=== PATIENT | male | born 1940 | race Caucasian/White ===

== ENCOUNTER 2019-02-15 23:33 | Emergency (ER) | payer MEDICARE, BC ==
[2019-02-16] MEDS ORDERED: Aspirin 81 MG Tab.Chew PO ONE (00:04)
--- NOTE | 2019-02-16 00:11 | EDM.PDOC ---
<Jose Isaacs M - Last Filed: 02/16/19 02:04> ED HPI GENERAL MEDICAL PROBLEM - General Chief Complaint: Chest Pain Stated Complaint: CHEST PAIN [id number] Time Seen by Provider: 02/16/19 00:00 Source of Information: Reports: Patient History Limitations: Reports: No Limitations - History of Present Illness INITIAL COMMENTS - FREE TEXT/NARRATIVE: This 78 yo male patient reports to the ED with substernal chest pain and upper abdominal pain that radiates to his back. The patient reports he started to notice symptoms while watching the news tonight. The patient reports he has a history of heartburn. The patient reports he had pizza for supper last night. Onset Date: 02/15/19 Onset Time: 22:00 Duration: Constant Location: Reports: Chest Quality: Reports: Ache, Burning, Dull Severity: Moderate Improves with: Reports: None Worsens with: Reports: None Associated Symptoms: Reports: No Other Symptoms Epigastric Pain Score (Numeric/FACES): 7 - Related Data Allergies Allergy/AdvReac Type Severity Reaction Status Date / Time No Known Allergies Allergy Verified 10/14/18 08:30 Home Meds: Home Meds Aspirin [Halfprin] 81 mg PO DAILY 10/10/18 [History] Lisinopril 10 mg PO DAILY 10/10/18 [History] Pravastatin Sodium [Pravastatin (Pravachol)] 40 mg PO DAILY 10/10/18 [History] Tamsulosin HCl 0.4 mg PO BEDTIME 10/10/18 [History] metFORMIN HCl [Metformin HCl] 1,000 mg PO DAILY 10/10/18 [History] Cyanocobalamin (Vitamin B-12) [B-12] 1,000 mcg PO DAILY 10/14/18 [History] amLODIPine Besylate [Amlodipine Besylate] 5 mg PO DAILY 10/14/18 [History] Past Medical History HEENT History: Reports: Impaired Vision Other HEENT History: Wears glasses Cardiovascular History: Reports: Hypertension Respiratory History: Reports: Sleep Apnea Gastrointestinal History: Reports: Diverticulosis, GERD, Other (See Below) Other Gastrointestinal History: Hx of Inguinal and umbilical hernia Genitourinary History: Reports: None Musculoskeletal History: Reports: Arthritis, Back Pain, Chronic Neurological History: Reports: None Psychiatric History: Reports: None Endocrine/Metabolic History: Reports: Diabetes, Type II, Obesity/BMI 30+ Hematologic History: Reports: B12 Deficiency Immunologic History: Reports: None Oncologic (Cancer) History: Reports: None Dermatologic History: Reports: None - Infectious Disease History Infectious Disease History: Reports: Chicken Pox, Mumps - Past Surgical History Head Surgeries/Procedures: Reports: None HEENT Surgical History: Reports: Adenoidectomy, Oral Surgery, Tonsillectomy Cardiovascular Surgical History: Reports: Other (See Below) Other Cardiovascular Surgeries/Procedures: hx of angiogram 2002 GI Surgical History: Reports: Colonoscopy, Hernia, Inguinal, Hernia Repair/Other Male Surgical History: Reports: None Endocrine Surgical History: Reports: None Neurological Surgical History: Reports: None Musculoskeletal Surgical History: Reports: Shoulder Surgery, Other (See Below) Other Musculoskeletal Surgeries/Procedures:: THUMB SURGERY. Orthoscopic knee surgery of right knee. Back surgery Social & Family History - Family History Family Medical History: Noncontributory - Caffeine Use Caffeine Use: Reports: Coffee Caffeine Use Comment: 1 mug daily. 1 pop occassionally ED ROS GENERAL - Review of Systems Review Of Systems: ROS reveals no pertinent complaints other than HPI. ED EXAM, GENERAL - Physical Exam Exam: See Below Exam Limited By: No Limitations General Appearance: Alert, WD/WN, Mild Distress Eye Exam: Bilateral Eye: EOMI, Normal Inspection, PERRL Ears: Normal External Exam, Normal Canal, Hearing Grossly Normal, Normal TMs Nose: Normal Inspection, Normal Mucosa, No Blood Throat/Mouth: Normal Inspection, Normal Lips, Normal Teeth, Normal Gums, Normal Oropharynx, Normal Voice, No Airway Compromise Head: Atraumatic, Normocephalic Neck: Normal Inspection, Supple, Non-Tender, Full Range of Motion Respiratory/Chest: No Respiratory Distress, Lungs Clear, Normal Breath Sounds, No Accessory Muscle Use, Chest Non-Tender Cardiovascular: Normal Peripheral Pulses, Regular Rate, Rhythm, No Edema, No Gallop, No JVD, No Murmur, No Rub GI/Abdominal: Normal Bowel Sounds, Soft, No Organomegaly, No Distention, No Abnormal Bruit, No Mass, Tender (over epigastric area) (Male) Exam: Deferred Rectal (Males) Exam: Deferred Back Exam: Normal Inspection, Full Range of Motion, NT Extremities: Normal Inspection, Normal Range of Motion, Non-Tender, Normal Capillary Refill, No Pedal Edema Neurological: Alert, Oriented, CN II-XII Intact, Normal Cognition, Normal Gait, Normal Reflexes, No Motor/Sensory Deficits Psychiatric: Normal Affect, Normal Mood Skin Exam: Warm, Dry, Intact, Normal Color, No Rash Lymphatic: No Adenopathy Course - Vital Signs Last Recorded V/S: Last Vital Signs Temp 37.4 C 02/15/19 23:37 Pulse 85 02/15/19 23:37 Resp 20 02/15/19 23:37 BP 170/88 H 02/15/19 23:37 Pulse Ox 95 02/15/19 23:37 - Orders/Labs/Meds Orders: Active Orders 24 hr Category Date Time Status EKG Documentation Completion [RC] URGENT Care 02/16/19 01:26 Active EKG Documentation Completion [RC] URGENT Care 02/16/19 03:30 Active Labs: Laboratory Tests 02/15/19 02/15/19 02/16/19 Range/Units 23:52 23:52 03:28 WBC 12.7 H (5.0-10.0) 10^3/uL RBC 5.90 (4.6-6.2) 10^6/uL Hgb 16.3 (14.0-18.0) g/dL Hct 48.1 (40.0-54.0) % MCV 81.5 (80-100) fL MCH 27.6 (27.0-34.0) pg MCHC 33.9 (33.0-35.0) g/dL Plt Count 214 (150-450) 10^3/uL Neut % (Auto) 67.6 (42.2-75.2) % Lymph % (Auto) 19.9 L (20.5-50.1) % [place] % (Auto) 9.0 H (2-8) % Eos % (Auto) 2.3 (1.0-3.0) % Baso % (Auto) 1.2 H (0.0-1.0) % Sodium 139 (135-145) mmol/L Potassium 3.5 L (3.6-5.0) mmol/L Chloride 103 (101-111) mmol/L Carbon Dioxide 25.0 (21.0-31.0) mmol/L Anion Gap 14.5 BUN 18 (7-18) mg/dL Creatinine 0.8 (0.6-1.3) mg/dL Est Cr Clr Drug Dosing 73.44 mL/min Estimated GFR (MDRD) > 60 BUN/Creatinine Ratio 22.50 Glucose 246 H (74-105) mg/dL Calcium 8.7 (8.4-10.2) mg/dl Total Bilirubin 0.7 (0.2-1.0) mg/dL AST 21 (10-42) IU/L ALT 16 (10-60) IU/L Alkaline Phosphatase 60 (42-121) IU/L Troponin I < 0.02 < 0.02 (0.00-0.02) ng/ml Total Protein 6.5 L (6.7-8.2) g/dl Albumin 3.7 (3.2-5.5) g/dl Globulin 2.8 Albumin/Globulin Ratio 1.32 Meds: Medications Discontinued Medications Generic Name Dose Route Start Last Admin Trade Name Freq PRN Reason Stop Dose Admin Al Hydroxide/Mg Hydroxide 30 ml 02/16/19 00:44 02/16/19 00:48 Gi Cocktail PO 02/16/19 00:45 30 ml ONETIME ONE Administration Aspirin 324 mg 02/16/19 00:04 02/16/19 00:08 Aspirin PO 02/16/19 00:05 324 mg ONETIME ONE Administration Morphine Sulfate 2 mg 02/16/19 01:06 02/16/19 01:10 Morphine IVPUSH 02/16/19 01:07 2 mg ONETIME ONE Administration - Re-Assessments/Exams Free Text/Narrative Re-Assessment/Exam: 02/16/19 00:48 The patient was advised of the lab, EKG and x-ray results. The patient reports the pain is starting to increase again. A GI cocktail was ordered for the patient. Departure - Departure Disposition: Home, Self-Care 01 Clinical Impression: Epigastric abdominal pain, Gastroesophageal reflux disease Instructions: Gastroesophageal Reflux Disease, Adult Forms: ED Department Discharge <Nic Duarte - Last Filed: 02/16/19 04:11> Course - Re-Assessments/Exams Free Text/Narrative Re-Assessment/Exam: Repeat troponin and EKG were both normal. Patient was deemed suitable for discharge home 02/16/19 04:11 Departure - Departure Time of Disposition: 04:10 Condition: Good - Problem List & Annotations (1) Epigastric abdominal pain SNOMED Code(s): 95627504 Code(s): R10.13 - EPIGASTRIC PAIN Status: Acute Current Visit: Yes - Problem List Review Problem List Initiated/Reviewed/Updated: Yes
[2019-02-16 00:20] LABS: ANION GAP 14.5; CHLORIDE,CL 103 mmol/L (101-111); SODIUM,NA 139 mmol/L (135-145)
[2019-02-16] MEDS ORDERED: GI Cocktail Oral Solution 30 ML PO ONE (00:44)
[2019-02-16] MEDS ORDERED: Morphine 2 MG/ML Syringe IVPUSH ONE (01:06)
== END 2019-02-16 04:20 | disposition home or self-care (01) ==
LOC: DL.ED 23:33
DX: K21.9 Gastro-esophageal reflux disease without esophagitis (principal); I10 Essential (primary) hypertension; E11.9 Type 2 diabetes mellitus without complications; Z79.82 Long term (current) use of aspirin; Z79.84 Long term (current) use of oral hypoglycemic drugs
CPT/HCPCS: 36415; 71045; 80053; 84484; 85025; 93005; 96374; 99285; A9270; J2270

== ENCOUNTER 2019-03-28 09:26 | Inpatient (IN) | payer MEDICARE, BC ==
--- NOTE | 2019-03-28 16:22 | PCM.HP ---
H&P History of Present Illness - General Date of Service: 03/28/19 Admit Problem/Dx: Admission Diagnosis/Problem Admission Diagnosis/Problem Debility Source of Information: Patient, Family History Limitations: Reports: No Limitations - History of Present Illness Initial Comments - Free Text/Narative: 78 yo M with PMH of CAD, HTN, who recently had CABG at [facility] on 03/20 and admitted to our facility for PT/OT as a swing bed patient. During his hospitalization in [place], had diarrhea and c diff and was started on oral vanc. 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 No new complaints. Diarrhea is improving - Related Data Allergies/Adverse Reactions: Allergies Allergy/AdvReac Type Severity Reaction Status Date / Time No Known Allergies Allergy Verified 03/28/19 10:21 Home Medications: Home Meds Lisinopril 10 mg PO DAILY 10/10/18 [History] Pravastatin Sodium [Pravastatin (Pravachol)] 40 mg PO DAILY 10/10/18 [History] Tamsulosin HCl 0.4 mg PO BEDTIME 10/10/18 [History] Cyanocobalamin (Vitamin B-12) [B-12] 1,000 mcg PO DAILY 10/14/18 [History] Amiodarone [Cordarone] 200 mg PO BID 03/28/19 [History] Aspirin 325 mg PO DAILY 03/28/19 [History] Metoprolol Tartrate [Lopressor] 25 mg PO BID 03/28/19 [History] Vancomycin HCl [Vancocin HCl] 125 mg PO QID 03/28/19 [History] traMADol [Ultram] 50 mg PO Q6H PRN 03/28/19 [History] Past Medical History HEENT History: Reports: Impaired Vision Other HEENT History: Wears glasses Cardiovascular History: Reports: Hypertension, Other (See Below) Other Cardiovascular History: CABG x2-2019 Respiratory History: Reports: Sleep Apnea Gastrointestinal History: Reports: Diverticulosis, GERD, Other (See Below) Other Gastrointestinal History: Hx of Inguinal and umbilical hernia Genitourinary History: Reports: None Musculoskeletal History: Reports: Arthritis, Back Pain, Chronic Neurological History: Reports: None Psychiatric History: Reports: None Endocrine/Metabolic History: Reports: Diabetes, Type II, Obesity/BMI 30+ Hematologic History: Reports: B12 Deficiency Immunologic History: Reports: None Oncologic (Cancer) History: Reports: None Dermatologic History: Reports: None - Infectious Disease History Infectious Disease History: Reports: C-Difficile, Chicken Pox - Past Surgical History Head Surgeries/Procedures: Reports: None HEENT Surgical History: Reports: Adenoidectomy, Oral Surgery, Tonsillectomy Cardiovascular Surgical History: Reports: Other (See Below) Other Cardiovascular Surgeries/Procedures: hx of angiogram 2002 GI Surgical History: Reports: Colonoscopy, Hernia, Inguinal, Hernia Repair/Other Male Surgical History: Reports: None Endocrine Surgical History: Reports: None Neurological Surgical History: Reports: None Musculoskeletal Surgical History: Reports: Shoulder Surgery, Other (See Below) Other Musculoskeletal Surgeries/Procedures:: THUMB SURGERY. Orthoscopic knee surgery of right knee. Back surgery Social & Family History - Family History Family Medical History: Noncontributory - Tobacco Use Smoking Status *Q: Former Smoker Used Tobacco, but Quit: Yes Month/Year Tobacco Last Used: 4 - Caffeine Use Caffeine Use: Reports: Coffee Caffeine Use Comment: 1 mug daily. 1 pop occassionally - Recreational Drug Use Recreational Drug Use: No H&P Review of Systems - Review of Systems: Review Of Systems: ROS reveals no pertinent complaints other than HPI. Exam - Exam Exam: See Below - Vital Signs Vital Signs: Last Vital Signs Temp 36.8 C 03/28/19 13:33 Pulse 85 03/28/19 13:33 Resp 20 03/28/19 13:33 BP 134/59 L 03/28/19 13:33 Pulse Ox 98 03/28/19 13:33 Weight: 98.339 kg - Exam General: Alert, Oriented HEENT: Conjunctiva Clear Neck: Supple, Trachea Midline Lungs: Clear to Auscultation, Normal Respiratory Effort Cardiovascular: Regular Rate, Regular Rhythm GI/Abdominal Exam: Normal Bowel Sounds, Soft Problem List Initiated/Reviewed/Updated: Yes Orders Last 24hrs: Active Orders 24 hr Category Date Time Status Patient Status [ADT] Routine ADT 03/28/19 16:11 Active Ambulate [RC] ASDIRECTED Care 03/28/19 16:11 Active Up With Assistance [RC] ASDIRECTED Care 03/28/19 16:11 Active VTE/DVT Education [RC] PER UNIT ROUTINE Care 03/28/19 16:11 Active Vital Signs [RC] DAILY Care 03/28/19 16:11 Active Regular Diet [DIET] Diet 03/28/19 Dinner Active Aspirin Med 03/29/19 09:00 Ordered 325 mg PO DAILY Cyanocobalamin (Vitamin B12) [Vitamin B12] Med 03/29/19 09:00 Ordered 1,000 mcg PO DAILY Lisinopril [Prinivil] Med 03/29/19 09:00 Ordered 10 mg PO DAILY Metoprolol Tartrate [Lopressor] Med 03/28/19 21:00 Ordered 25 mg PO BID Pravastatin Sodium Med 03/29/19 09:00 Ordered 40 mg PO DAILY Tamsulosin [Flomax] Med 03/28/19 21:00 Ordered 0.4 mg PO BEDTIME Vancomycin HCl [Vancocin HCl] Med 03/28/19 17:00 Ordered 125 mg PO QID traMADol [Ultram] Med 03/28/19 16:13 Ordered 50 mg PO Q6H PRN Code Status [Resuscitation Status] Routine Resus Stat 03/28/19 16:12 Ordered Medication Orders Aspirin (Aspirin) 325 mg PO DAILY GINA Cyanocobalamin (Vitamin B12) 1,000 mcg PO DAILY GINA Lisinopril (Prinivil) 10 mg PO DAILY GINA Metoprolol Tartrate (Lopressor) 25 mg PO BID GINA Non-Formulary Medication (Pravastatin Sodium) 40 mg PO DAILY GINA Non-Formulary Medication (Vancomycin Hcl [Vancocin Hcl]) 125 mg PO QID GINA Tamsulosin HCl (Flomax) 0.4 mg PO BEDTIME GINA Tramadol HCl (Ultram) 50 mg PO Q6H PRN PRN Reason: Pain (moderate 4-6) Assessment/Plan Comment:: #CAD s/p CABG stable continue aspirin, metoprolol, statin can hold amiodarone started for darryl-procedural afib. No AC #PT/OT #HTN continue current BP meds #C Diff improving continue oral vancomycin #Full code
[2019-03-28] MEDS: Vancomycin 50 MG/ML Oral Solution Bottle Kit PO SCH ×2 (17:34→20:51)
[2019-03-28] MEDS: traMADol 50 MG Tab PO PRN (19:39)
[2019-03-28] MEDS: Metoprolol Tartrate 25 MG Tab PO SCH (20:50)
[2019-03-28] MEDS: Tamsulosin 0.4 MG Cap.ER PO SCH (20:51)
[2019-03-29] MEDS: Metoprolol Tartrate 25 MG Tab PO SCH ×2 (09:55→20:55)
[2019-03-29] MEDS: Pravastatin 20 MG Tab PO SCH (09:55)
[2019-03-29] MEDS: Cyanocobalamin (Vitamin B12) 1,000 MCG Tab PO SCH (09:57)
[2019-03-29] MEDS: Vancomycin 50 MG/ML Oral Solution Bottle Kit PO SCH ×4 (09:57→20:55)
[2019-03-29] MEDS: Aspirin 325 MG Tab.EC PO SCH (09:57)
[2019-03-29] MEDS: Lisinopril 10 MG Tab PO SCH (09:57)
[2019-03-29] MEDS: Insulin Lispro 100 Units/ML 3 ML Vial SUBCUT SCH ×2 (12:17→18:03)
[2019-03-29] MEDS: traMADol 50 MG Tab PO PRN (20:56)
[2019-03-29] MEDS: Tamsulosin 0.4 MG Cap.ER PO SCH (20:56)
[2019-03-30] MEDS: traMADol 50 MG Tab PO PRN ×2 (04:19→20:45)
[2019-03-30] MEDS: Insulin Lispro 100 Units/ML 3 ML Vial SUBCUT SCH ×3 (08:12→17:09)
[2019-03-30] MEDS: Pravastatin 20 MG Tab PO SCH (09:06)
[2019-03-30] MEDS: Aspirin 325 MG Tab.EC PO SCH (09:07)
[2019-03-30] MEDS: Metoprolol Tartrate 25 MG Tab PO SCH ×2 (09:07→20:46)
[2019-03-30] MEDS: Cyanocobalamin (Vitamin B12) 1,000 MCG Tab PO SCH (09:08)
[2019-03-30] MEDS: Lisinopril 10 MG Tab PO SCH (09:08)
[2019-03-30] MEDS: Vancomycin 50 MG/ML Oral Solution Bottle Kit PO SCH ×4 (09:09→20:47)
--- OUTSIDE RECORDS SUMMARY | 2019-03-30 10:01 | XMSREPORT | Summary of Care ---
:1940 Author Organization [facility] Address [facility] [place] [address] Care Team Providers Name Role Phone Provider, No Attributed RESOURCE Attributed Provider Unavailable Vicky Walter APRN-MIGUEL ANGEL Primary Care Provider Reason for Visit Auth/Cert Status Reason Specialty Diagnoses / Procedures Referred By Contact Referred To Contact Diagnoses Atherosclerotic heart disease of [place] coronary artery Procedures CORONARY ARTERY BYPASS USING ARTERIAL GRAFT(S) SNGL ARTERIAL GRAFT Encounter Details Date Type Department Care Team Description 03/20/2019 - Hospital Encounter [facility] Jalen, CAD (coronary artery 03/28/2019 CENTER 6CD SLAVA Roblero MD disease) [id number] [place] [address] S [phone] [place] [address] [phone] Allergies No Known Allergiesdocumented as of this encounter (statuses as of 03/28/2019) Medications Medication Sig Dispensed Refills Start Date End Date Status lisinopril Take 10 mg by 0 Active (PRINIVIL, ZESTRIL) mouth 1 time 10 mg tablet per day. cyanocobalamin Take 1,000 mcg 0 Active (VITAMIN B-12) 500 by mouth 1 mcg tablet time per day. pravastatin Take 40 mg by 0 02/27/2015 Active (PRAVACHOL) 40 mg mouth 1 time tablet per day metFORMIN Take 500 mg by 0 Active (GLUCOPHAGE) 500 MG mouth 1 time tablet per day tamsulosin (FLOMAX) Take 0.4 mg by 0 Active 0.4 mg capsule mouth every night at bedtime aspirin 325 mg Take 1 tablet 120 tablet 0 03/28/2019 Active tabletIndications: (325 mg) by S/P CABG (coronary mouth 1 time artery bypass per day graft), Coronary artery disease involving [place] coronary artery of t[place] heart with angina pectoris (HCC) amiodarone Take 1 tablet 42 tablet 0 03/28/2019 Active (CORDARONE, (200 mg) by 9 PACERONE) 200 mg mouth 2 times tabletIndications: a day for 14 S/P CABG (coronary days, THEN 1 artery bypass tablet (200 graft), Coronary mg) 1 time per artery disease day for 14 involving [place]ora days. coronary artery of [place] heart with angina pectoris (HCC) metoprolol tartrate Take 1 tablet 180 tablet 3 03/28/2019 Active (LOPRESSOR) 25 mg (25 mg) by tabletIndications: mouth 2 times S/P CABG (coronary a day artery bypass graft), Coronary artery disease involving [place] coronary artery of [place] heart with angina pectoris (HCC) vancomycin Take 1 capsule 36 capsule 0 03/28/2019 Active (VANCOCIN) 125 mg (125 mg) by 9 capsuleIndications: mouth 4 times S/P CABG (coronary a day for 9 artery bypass days graft), Coronary artery disease involving [place] coronary artery of [place] heart with angina pectoris (HCC) traMADol (ULTRAM) 50 Take 1 tablet 10 tablet 0 03/28/2019 Active mg (50 mg) by tabletIndications: mouth every 4 S/P CABG (coronary to 6 hours as artery bypass needed for graft), Coronary moderate pain artery disease or severe pain involving [place] coronary artery of [place] heart with angina pectoris (HCC) acetaminophen Take 1,000 mg 0 Discontinued (TYLENOL) 500 mg by mouth Every 9 tablet 4 hours as needed. amLODIPine (NORVASC) Take 10 mg by 0 Discontinued 10 mg tablet mouth 1 time 9 per day. aspirin 81 mg Take 81 mg by 0 Discontinued enteric coated mouth 1 time 9 tablet per day. 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 Never 03/15/2019 How many drinks containing alcohol do you have on a typical Not asked day when you are drinking? How often do you have six or more drinks on one occasion? Not asked Sex Assigned at Date Recorded Not on file Job Start Date Occupation Industry Not on file Not on file Not on file Travel History Travel Start Travel End No recent travel history available. documented as of this encounter Last Filed Vital Signs Vital Sign Reading Time Taken Blood Pressure 139/88 03/28/2019 8:30 AM CDT Pulse 72 03/28/2019 8:30 AM CDT Temperature 36.8 C (98.3 F) 03/28/2019 8:30 AM CDT Respiratory Rate 16 03/28/2019 8:30 AM CDT Oxygen Saturation 93% 03/28/2019 8:30 AM CDT Inhaled Oxygen Concentration - - Weight 96.1 kg (211 lb 13.8 oz) 03/28/2019 5:17 AM CDT Height 167.6 cm (5' 6") 03/21/2019 12:00 AM CDT Body Mass Index 34.2 03/28/2019 5:17 AM CDT documented in this encounter Functional Status Functional Status Response Date of Assessment Is the person deaf or does he/she have serious difficulty No 03/17/2019 hearing? Is this person blind or does he/she have difficulty No 03/17/2019 seeing even when wearing glasses? Do you have difficulty with walking, balance, climbing No 03/20/2019 stairs, or had a fall in the last 3 months? Does the patient have difficulty dressing or bathing? No 03/17/2019 Because of a physical, mental, or emotional condition; No 03/17/2019 does this person have difficulty doing errands alone such as visiting a doctor's office or shopping? Cognitive Status Response Date of Assessment Because of a physical, mental, or emotional condition; No 03/17/2019 does this person have serious difficulty concentrating, remembering, or making decisions? documented as of this encounter Discharge Summaries Tor DavidEDUAR Fontaine-Johnnie - 03/28/2019 7:55 AM CDT Hospital Discharge Summary Attending Physician: Geraldine Davila MD Attending Physician Specialty: Cardiovascular and Thoracic Surgery Admit Date: 03/20/2019 Discharge Date: 03/28/19 Primary Care Physician: Vicky Walter APRN-[employer]OLDER [employer] RU[employer]ER Discharge Diagnoses Active Problems: CAD (coronary artery disease) Resolved Problems: * No resolved hospital problems. * Hospital Course Patient is a 78yr male with multi-vessel coronary artery disease. The patient' s symptoms include chest heaviness, shortness of breath and dyspnea on exertion. He denies progressive fatigue, syncope, dizziness, orthopnea, PND, leg swelling and palpitations. Recent cardiac workup has included cardiaccatheterization. He underwent Coronary Artery Bypass Grafting x 2 - On Pump - CHON to Distal LAD and RSVG to RCA by Dr. Davila on 03/20/19. Postoperatively the following day of surgery mediastinal chest tubes, arterial line, and vasopressors were discontinued. He was in stable condition to be transferred out of the ICU. He was started on abeta raul, statin, amiodarone prophylaxis, and aspirin. On POD# 3 patient developed atrial fibrillation, he was started on an amiodarone drip. He converted to normal sinus rhythm on POD#4 where he remained. POD#1 espinal was pulled out and needed to be reinserted due to hematuria, urology was consulted to manage. Espinal was removed on POD# 5, patient able to void without difficulty after catheter removal and bowel function returned. He started having frequent loose stools on POD#6, tested positivefor C. Diff and was started on vancomycin. He was successfully weaned from supplemental oxygen and ambulate without assistance. Prior to discharge central line and pacing wires were removed. Last potassium 4.8, last creatinine 0.80 were on 03/27 and last hemoglobin 10.2 were on 03/25. Hemodynamically stable , NSR. Last CXR revealed bibasilar atelectasis, no effusion or pneumothorax on . Patient is stable and ready for discharge to swing bed. Please see discharge AVS for medication list. Patient to start cardiac rehab in 1-2 weeks. Patient is advised of sternal precautions, no driving,no heavy lifting. Follow up with Dr. Davila in 1-2 weeks, then again in 3-4 weeks with echo, CXR, EKG, and labs. All questions were answered and patient is agreeable to discharge plan. LabTests Pending at Discharge Follow-Up Scheduled Contact information for follow-up Cardiac rehab [facility] [phone] Next Steps: Follow up Instructions: Cardiac rehab will contact you to set up initial appointment [facility] Ivan [place], RESOURCE Specialty: Acute [facility] ([facility]) [facility] Ivan [place] [address] [place] [address] Next Steps: Follow up Preliminary Discharge Medications This list of medications is preliminary and tentative. Please see the After Visit Summary for the final and accurate medication list. Discharge Medication List START taking these medications START: amiodarone 200 mg tablet Commonly known as: CORDARONE, PACERONE Take 1 tablet (200 mg) by mouth 2 times a day for 14 days, THEN 1 tablet (200 mg ) 1 time per day for14 days. Start taking on: 03/28/2019 START: aspirin 325 mg tablet Dose: 325 mg Take 1 tablet (325 mg) by mouth 1 time per day Replaces: aspirin 81 mg enteric coated tablet START: metoprolol tartrate 25 mg tablet Commonly known as: LOPRESSOR Dose: 25 mg Take 1 tablet (25 mg) by mouth 2 times a day START: traMADol 50 mg tablet Commonly known as: ULTRAM Dose: 50 mg Take 1 tablet (50 mg) by mouth every 4 to 6 hours as needed for moderate pain or severe pain START: vancomycin 125 mg capsule Commonly known as: VANCOCIN Dose: 125 mg Take 1 capsule (125 mg) by mouth 4 times a day for 9 days CONTINUE taking these medications which have NOT CHANGED CONTINUE: cyanocobalamin 500 mcg tablet Commonly known as: Vitamin B-12 Dose: 1000 mcg Take 1,000 mcg by mouth 1 time per day. CONTINUE: lisinopril 10 mg tablet Commonly known as: PRINIVIL, ZESTRIL Dose: 10 mg Take 10 mg by mouth 1 time per day. CONTINUE: pravastatin 40 mg tablet Commonly known as: PRAVACHOL Dose: 40 mg Take 40 mg by mouth 1 time per day CONTINUE: tamsulosin 0.4 mg capsule Commonly known as: FLOMAX Dose: 0.4 mg Take 0.4 mg by mouth every night at bedtime You might also be taking other medications not listed above. If you have questions about any of your other medications, talk to the person who prescribed them or your Primary Care Provider. STOP taking these medications STOP: amLODIPine 10 mg tablet Commonly known as: NORVASC STOP: aspirin 81 mg enteric coated tablet Replaced by: aspirin 325 mg tablet Where to Get Your Medications Information about where to get these medications is not yet available Ask your nurse or doctor about these medications amiodarone 200 mg tablet aspirin 325 mg tablet metoprolol tartrate 25 mg tablet traMADol 50 mg tablet vancomycin 125 mg capsule Temp: 98.9 F (37.2 C) BP: 138/94 Weight: 96.1 kg (211 lb 13.8 oz) SpO2: 93 % Resp: 16 Pulse: 77 Current BMI (>50=increased risk): (!) 33.91 O2 Device: Room Air O2 Flow Rate (L/min): 0 l/min Physical Exam See todays progress note. Procedures Performed and Findings All procedures during admission Procedure(s): CORONARY ARTERY BYPASS GRAFTING X2, VELAZQUEZ TO LAD, SVBG FROM AORTA TO RCA, OPEN LEG VEIN HARVEST, ON PUMP Consultations Obtained ENDOCRINOLOGY CONSULT UROLOGY CONSULT Discharge Disposition ADULT Discharge Planning: Home (1, 2) Medical Decision Making A total of 60 minutes were spent on discharge coordination. documented in this encounter Discharge Instructions Gris Elder PA-C - 03/28/2019Cardiothoracic Surgery Discharge Instructions 1. Follow up with Dr. Davila in 1-2 weeks as scheduled. 2. Do not lift anything heavier than a gallon of milk or do any strenuous upper body activity for 6weeks from the date of surgery. 3. Keep your incisions clean and dry. They can be washed with soap and water then patted dry. No dressings, ointments, creams, or powders are necessary unless directed by your doctor. 4. Place a band-aid or dry dressing over your chest tube sites only if draining. 5. Call Dr. Davila' office at [phone] if any of the following symptoms appear: Fever If your incisions appear reddened, draining purulent drainage, or if the wound edges come apart. If you develop shortness of breath or activity intolerance If your pain is severe and/or not relieved with pain medication 6. If any of the above symptoms appear after hours, or on weekends, call [facility] [place] Nurse at or [phone]. 7. You may shower, however do not take a tub bath, until okayed by your doctor. 8. Do not drive for 4 weeks from the date of surgery, and never while taking narcotic pain medicine. 9. Continue to use your incentive spirometer at home. 10. Please keep scheduled appointment with primary care provider as scheduled. documented in this encounter Progress Notes Odalis Aragon MD - 03/28/2019 9:13 AM CDT DIABETES CONSULT SERVICE PROGRESS NOTE 03/28/2019 Assessment and Plan 1. Type 2 Diabetes is currently stable. 2. Status post CABG 3. Dyslipidemia 4. Essential hypertension 5. Osteoarthritis Treatment Options and Recommendations 1. Diabetes type 2. The patient has good controlled diabetes. He is on low- dose Lantus 10 units once a day and NovoLog low-dose supplemental sliding scale. His blood sugars are well controlled right now. He has diagnosis of C. difficile infection diagnosed yesterday morning. He is on vancomycintreatment. He is going to swing bed in [place] for 7 days. - I suggest holding metformin well his insulin bed. He may resume metformin after he got back home. Metformin can cause diarrhea. Right now he has C. Diff infection. I would like to wait until he completes antibiotic first before resuming metformin. - May continue Lantus at swing bed if his blood sugar is still elevated. - Aim blood sugar between 120-180 mg/dL. 2. Dyslipidemia. Continue pravastatin 40 mg once a day. The diabetes consult service will answer pages from 7 AM to 7 PM. Please contact the primary team outside of these hours for urgent needs. Identifying Information / Chief Complaint Liang Yap is a 78yr old male admitted on 03/20/2019 5:00 AM. Chief Complaint: Type 2 Diabetes Interval History Interval History: He is stable. He has C. diff positive diagnosed on 03/25/2019. He was having diarrhea earlier. His diarrhea is better today. He has good appetite. He is eating well. He is treated with vancomycin 125 mg 4 times a day. He does not have any abdominal pain. His blood sugars well controlled on low dose insulin. He is going to swing bed in [place] for about 7 days before going home. At home he was on metformin 500 mg once a day. His A1c was 7.2%. He was having stomach problems when he was taking higher dose of metformin. Review of Systems General: No fevers or chillsCV: No chest pain Respiratory: No shortness of breath Physical Exam Vital Signs: BP: 139/88 (03/28/19829) | Pulse: 72 (03/28/19829) | Resp: 16 ( 03/28/19829) Mental Status: alert Lungs: no dyspnea, clear to auscultation bilaterally, normal effort. Eyes: sclera anicteric Skin: No rashes, lesions, or nodules on limited exam Data Review Last A1C Lab Results Component Value Date HGBA1C 7.2 (H) 03/15/2019 Last 48 Hours Glucose POC Glucose 03/28/19 0804 03/27/19 2353 03/27/19 1706 03/27/19 1115 03/27/19 0726 POC Glucose 112 115 119 169 130 Lab Glucose 03/27/19 0430 03/26/19 2052 03/26/19 1712 03/26/19 1132 POC Glucose 152 96 176 Lab Glucose 132 Odalis Aragon MD Geraldine Ledesma MD - 03/28/2019 8:28 AM CDTCVTS STAFF PROGRESS NOTE Pt seen at bedside. Agree with progress note and plan as written by Gris David PA-C Pt looks very good. Ready for transfer to swing bed today. Gris Albrecht PA- C - 03/28/2019 7:19 AM CDT CVTS Progress Note POD #8 Subjective: Problems over the previous 24 hours: none. Today, patient is complaining of nothing. Objective: Admission weight: Weight: 95.7 kg (211 lb) Current weight: Weight: 96.6 kg (212 lb 14.4 oz) Temp: 99 F (37.2 C) | BP: 161/97 | Pulse: 79 | Resp: 20 | Pain Ratin ( out of 10) | Weight: 96.1 kg (211 lb 13.8 oz) | O2 Device: Room Air O2 Flow Rate (L/min): 0 l/min | SpO2: 94 % Maximum Temperatures (last 24 hours) Temperature Maximum Max Temp 100.2 F (37.9 C) Tele: normal sinus rhythm Heart: RRR Lungs: CTA Bilaterally Extremities: no edema Incision(s): sternotomy clean, dry and intact and right groin clean, dry and intact Labs: CBC: WBC Date Value Ref Range Status 03/21/2019 19.4 (H) 4.0 - 11.0 K/uL Final 03/20/2019 22.7 (H) 4.0 - 11.0 K/uL Final Hemoglobin Date Value Ref Range Status 03/25/2019 10.2 (L) 13.5 - 17.5 g/dL Final 03/21/2019 11.2 (L) 13.5 - 17.5 g/dL Final Hematocrit Date Value Ref Range Status 03/21/2019 34.6 (L) 40.0 - 50.0 % Final 03/20/2019 41.9 40.0 - 50.0 % Final Platelet Count Date Value Ref Range Status 03/25/2019 294 140 - 400 K/uL Final 03/21/2019 145 140 - 400 K/uL Final Renal Function Panel: Sodium Date Value Ref Range Status 03/27/2019 141 135 - 145 meq/L Final 03/26/2019 142 135 - 145 meq/L Final Potassium Date Value Ref Range Status 03/27/2019 4.8 3.5 - 5.3 meq/L Final 03/26/2019 3.8 3.5 - 5.3 meq/L Final Chloride Date Value Ref Range Status 03/27/2019 105 99 - 110 meq/L Final 03/26/2019 105 99 - 110 meq/L Final CO2 Date Value Ref Range Status 03/27/2019 22 20 - 29 meq/L Final 03/26/2019 24 20 - 29 meq/L Final BUN Date Value Ref Range Status 03/27/2019 19 6 - 22 mg/dL Final 03/26/2019 21 6 - 22 mg/dL Final Creatinine Date Value Ref Range Status 03/27/2019 0.80 0.80 - 1.30 mg/dL Final 03/26/2019 0.84 0.80 - 1.30 mg/dL Final Glucose POC Date Value Ref Range Status 03/27/2019 115 (H) 70 - 100 mg/dL Final 03/27/2019 119 (H) 70 - 100 mg/dL Final Calcium Date Value Ref Range Status 03/27/2019 8.3 (L) 8.5 - 10.5 mg/dL Final 03/26/2019 8.6 8.5 - 10.5 mg/dL Final Phosphorus Date Value Ref Range Status 03/27/2019 3.9 2.5 - 4.5 mg/dL Final 03/26/2019 3.5 2.5 - 4.5 mg/dL Final Albumin Date Value Ref Range Status 03/27/2019 2.6 (L) 3.5 - 5.0 g/dL Final 03/26/2019 2.9 (L) 3.5 - 5.0 g/dL Final INR: INR Date Value Ref Range Status 03/20/2019 1.1 (L) 2.0 - 3.5 Final 03/06/2019 1.0 (L) 2.0 - 3.5 Final Assessment: S/PCABG Acute blood loss anemia after surgery Diabetes mellitus Post-op metabolic encephalopathy with confusion-improving Atrial fibrillation after surgical procedure C. Diff Plan: Pulmonary toilet Continue Vanco, aspirin, beta raul, ACEI/ARB, amiodarone and SQ heparin OOB to chair Ambulate Discharge to swing bed today by 10am Odalis Hobbs MD - 03/27/2019 10:41 AM CDT DIABETES CONSULT SERVICE PROGRESS NOTE 03/27/2019 Assessment and Plan 1. Type 2 Diabetes is currently stable. 2. Status post CABG 3. Dyslipidemia 4. Essential hypertension 5. Osteoarthritis Treatment Options and Recommendations 1. Diabetes type 2. The patient has good controlled diabetes. He is on low- dose Lantus 10 units once a day and NovoLog low-dose supplemental sliding scale. His blood sugars are well controlled right now. He has diagnosis of C. difficile infection diagnosed yesterday morning. He is on vancomycintreatment. - Continue Lantus 10 units once a day and NovoLog supplemental sliding scale. - Aim blood sugar between 120-180 mg/dL. I will follow with you. - Resume metformin after discharge. No insulin treatment at home. 2. Dyslipidemia. Continue pravastatin 40 mg once a day. The diabetes consult service will answer pages from 7 AM to 7 PM. Please contact the primary team outside of these hours for urgent needs. Identifying Information / Chief Complaint Liang Yap is a 78yr old male admitted on 03/20/2019 5:00 AM. Chief Complaint: Type 2 Diabetes Interval History Interval History: He is stable. He has C. diff positive diagnosed yesterday. He was having diarrhea earlier. His diarrhea is better today. He has good appetite. He is eating well. He is treated with vancomycin 125 mg 4 times a day. He does not have any abdominal pain. His blood sugars well controlled on low dose insulin. At home he was on metformin 500 mg once a day. His A1c was 7.2%. He was having stomach problems when he was taking higher dose of metformin. Review of Systems General: No fevers or chillsCV: No chest pain Respiratory: No shortness of breath Physical Exam Vital Signs: BP: 128/84 (03/27/19 0900) | Pulse: 84 (03/27/19 0900) | Resp: 16 ( 03/27/19 0900) Mental Status: alert Lungs: no dyspnea, clear to auscultation bilaterally, normal effort. Eyes: sclera anicteric Skin: No rashes, lesions, or nodules on limited exam Data Review Last A1C Lab Results Component Value Date HGBA1C 7.2 (H) 03/15/2019 Last 48 Hours Glucose POC Glucose (Last 10 results in the past 48 hours) 03/27/19 0726 03/27/19 0430 03/26/19 2052 03/26/19 1712 03/26/19 1132 POC Glucose 130 152 96 176 Lab Glucose 132 03/26/19 0843 03/26/19 0452 03/25/19 2048 03/25/19 1713 03/25/19 1125 POC Glucose 127 165 126 237 Lab Glucose 136 Odalis Aragon MD Geraldine Ledesma MD - 03/27/2019 7:41 AM CDTCVTS STAFF PROGRESS NOTE Pt seen at bedside. Agree with progress note and plan as written by Gris David PA-C Doing well other than CDiff. On oral vanco now. Patient stable for transfer to SNF if accepted. Continue all current meds. Gris Albrecht PA-C - 03/27/2019 7: 36 AM CDT CVTS Progress Note POD #7 Subjective: Problems over the previous 24 hours: C.Diff positive-started on oral vanco. Today, patient is complaining of nothing. Objective: Admission weight: Weight: 95.7 kg (211 lb) Current weight: Weight: 96.6 kg (212 lb 14.4 oz) Temp: 98.7 F (37.1 C) | BP: 126/79 | Pulse: 74 | Resp: 16 | Pain Ratin ( out of 10) | Weight:96.6 kg (212 lb 14.4 oz) | O2 Device: Room Air O2 Flow Rate (L/min): 0 l/min | SpO2: 92 % Maximum Temperatures (last 24 hours) Temperature Maximum Max Temp 99 F (37.2 C) Tele: normal sinus rhythm Heart: RRR Lungs: wheezes bilaterally Extremities: no edema Incision(s): sternotomy clean, dry and intact and right groin clean, dry and intact Labs: CBC: WBC Date Value Ref Range Status 03/21/2019 19.4 (H) 4.0 - 11.0 K/uL Final 03/20/2019 22.7 (H) 4.0 - 11.0 K/uL Final Hemoglobin Date Value Ref Range Status 03/25/2019 10.2 (L) 13.5 - 17.5 g/dL Final 03/21/2019 11.2 (L) 13.5 - 17.5 g/dL Final Hematocrit Date Value Ref Range Status 03/21/2019 34.6 (L) 40.0 - 50.0 % Final 03/20/2019 41.9 40.0 - 50.0 % Final Platelet Count Date Value Ref Range Status 03/25/2019 294 140 - 400 K/uL Final 03/21/2019 145 140 - 400 K/uL Final Renal Function Panel: Sodium Date Value Ref Range Status 03/27/2019 141 135 - 145 meq/L Final 03/26/2019 142 135 - 145 meq/L Final Potassium Date Value Ref Range Status 03/27/2019 4.8 3.5 - 5.3 meq/L Final 03/26/2019 3.8 3.5 - 5.3 meq/L Final Chloride Date Value Ref Range Status 03/27/2019 105 99 - 110 meq/L Final 03/26/2019 105 99 - 110 meq/L Final CO2 Date Value Ref Range Status 03/27/2019 22 20 - 29 meq/L Final 03/26/2019 24 20 - 29 meq/L Final BUN Date Value Ref Range Status 03/27/2019 19 6 - 22 mg/dL Final 03/26/2019 21 6 - 22 mg/dL Final Creatinine Date Value Ref Range Status 03/27/2019 0.80 0.80 - 1.30 mg/dL Final 03/26/2019 0.84 0.80 - 1.30 mg/dL Final Glucose Date Value Ref Range Status 03/27/2019 132 (H) 70 - 100 mg/dL Final Glucose POC Date Value Ref Range Status 03/27/2019 130 (H) 70 - 100 mg/dL Final Calcium Date Value Ref Range Status 03/27/2019 8.3 (L) 8.5 - 10.5 mg/dL Final 03/26/2019 8.6 8.5 - 10.5 mg/dL Final Phosphorus Date Value Ref Range Status 03/27/2019 3.9 2.5 - 4.5 mg/dL Final 03/26/2019 3.5 2.5 - 4.5 mg/dL Final Albumin Date Value Ref Range Status 03/27/2019 2.6 (L) 3.5 - 5.0 g/dL Final 03/26/2019 2.9 (L) 3.5 - 5.0 g/dL Final INR: INR Date Value Ref Range Status 03/20/2019 1.1 (L) 2.0 - 3.5 Final 03/06/2019 1.0 (L) 2.0 - 3.5 Final Chest X-Ray: left lobe atelectasis Assessment: S/PCABG Acute blood loss anemia after surgery Diabetes mellitus Post-op metabolic encephalopathy with confusion-improving Atrial fibrillation after surgical procedure C. Diff - Plan: Pulmonary toilet Continue Vanco, aspirin, beta raul, ACEI/ARB, amiodarone and SQ heparin OOB to chair Ambulate Cardiac rehab Continue PT/OT Discharge pending SNF placement Odalis Hobbs MD - 03/26/2019 6:27 PM CDT DIABETES CONSULT SERVICE PROGRESS NOTE 03/26/2019 Assessment and Plan 1. Type 2 Diabetes is currently stable. 2. Status post CABG 3. Dyslipidemia 4. Essential hypertension 5. Osteoarthritis Treatment Options and Recommendations 1. Diabetes type 2. The patient has good controlled diabetes. He is on low- dose Lantus 10 units once a day and NovoLog low-dose supplemental sliding scale. At home he was on metformin 500 mg once aday. His A1c was 7.2%. He was having stomach problems when he was taking higher dose of metformin. His blood sugar is well controlled right now. He has diagnosis of C. Difficile infection this morning. He is on vancomycin treatment. - Continue Lantus 10 units once a day and NovoLog supplemental sliding scale. - Resume metformin after discharge. No insulin treatment at home. 2. Dyslipidemia. Continue pravastatin 40 mg once a day. The diabetes consult service will answer pages from 7 AM to 7 PM. Please contact the primary team outside of these hours for urgent needs. Identifying Information / Chief Complaint Liang Yap is a 78yr old male admitted on 03/20/2019 5:00 AM. Chief Complaint: Type 2 Diabetes Interval History Interval History: He is stable. He has C. diff positive this morning. He was having diarrhea earlier. He is treated with vancomycin 125 mg 4 times a day. He reports that he has good appetite. He denies abdominal pain, nausea vomiting. He has been ambulating. His blood sugars well controlled on low dose insulin. Review of Systems General: No fevers or chillsCV: No chest pain Respiratory: No shortness of breath Physical Exam Vital Signs: BP: 116/66 (03/26/19 1523) | Pulse: 78 (03/26/19 1700) | Resp: 16 ( 03/26/19 1523) Mental Status: alert Lungs: no dyspnea, clear to auscultation bilaterally, normal effort. Eyes: sclera anicteric Skin: No rashes, lesions, or nodules on limited exam Data Review Last A1C Lab Results Component Value Date HGBA1C 7.2 (H) 03/15/2019 Last 48 Hours Glucose POC Glucose (Last 10 results in the past 48 hours) 03/26/19 1712 03/26/19 1132 03/26/19 0843 03/26/19 0452 03/25/19 2048 POC Glucose 96 176 127 165 Lab Glucose 136 03/25/19 1713 03/25/19 1125 03/25/19 0823 03/25/19 0440 03/24/194 POC Glucose 126 237 128 174 Lab Glucose 139 Odalis Aragon MD Gris decker PA-C - 03/26/2019 9:04 AM CDT CVTS Progress Note POD #6 Subjective: Problems over the previous 24 hours: frequent loose stools-will test for C. Diff. Today, patient is complaining of nothing. Objective: Admission weight: Weight: 95.7 kg (211 lb) Current weight: Weight: 96.4 kg (212 lb 9.6 oz) Urine Output: 1300 mL/24 hours Temp: 98.9 F (37.2 C) | BP: 113/83 | Pulse: 88 | Resp: 14 | Pain Ratin ( out of 10) | Weight:96.4 kg (212 lb 9.6 oz) | O2 Device: Room Air O2 Flow Rate (L/min): 0 l/min | SpO2: 95 % Maximum Temperatures (last 24 hours) Temperature Maximum Max Temp 99.1 F (37.3 C) Tele: normal sinus rhythm Heart: RRR Lungs: CTA bilaterally Extremities: no edema Incision(s): sternotomy clean, dry and intact and right leg clean, dry and intact Labs: CBC: WBC Date Value Ref Range Status 03/21/2019 19.4 (H) 4.0 - 11.0 K/uL Final 03/20/2019 22.7 (H) 4.0 - 11.0 K/uL Final Hemoglobin Date Value Ref Range Status 03/25/2019 10.2 (L) 13.5 - 17.5 g/dL Final 03/21/2019 11.2 (L) 13.5 - 17.5 g/dL Final Hematocrit Date Value Ref Range Status 03/21/2019 34.6 (L) 40.0 - 50.0 % Final 03/20/2019 41.9 40.0 - 50.0 % Final Platelet Count Date Value Ref Range Status 03/25/2019 294 140 - 400 K/uL Final 03/21/2019 145 140 - 400 K/uL Final Renal Function Panel: Sodium Date Value Ref Range Status 03/26/2019 142 135 - 145 meq/L Final 03/25/2019 139 135 - 145 meq/L Final Potassium Date Value Ref Range Status 03/26/2019 3.8 3.5 - 5.3 meq/L Final 03/25/2019 3.7 3.5 - 5.3 meq/L Final Chloride Date Value Ref Range Status 03/26/2019 105 99 - 110 meq/L Final 03/25/2019 104 99 - 110 meq/L Final CO2 Date Value Ref Range Status 03/26/2019 24 20 - 29 meq/L Final 03/25/2019 27 20 - 29 meq/L Final BUN Date Value Ref Range Status 03/26/2019 21 6 - 22 mg/dL Final 03/25/2019 23 (H) 6 - 22 mg/dL Final Creatinine Date Value Ref Range Status 03/26/2019 0.84 0.80 - 1.30 mg/dL Final 03/25/2019 0.84 0.80 - 1.30 mg/dL Final Glucose Date Value Ref Range Status 03/26/2019 136 (H) 70 - 100 mg/dL Final Glucose POC Date Value Ref Range Status 03/26/2019 127 (H) 70 - 100 mg/dL Final Calcium Date Value Ref Range Status 03/26/2019 8.6 8.5 - 10.5 mg/dL Final 03/25/2019 8.6 8.5 - 10.5 mg/dL Final Phosphorus Date Value Ref Range Status 03/26/2019 3.5 2.5 - 4.5 mg/dL Final 03/25/2019 3.1 2.5 - 4.5 mg/dL Final Albumin Date Value Ref Range Status 03/26/2019 2.9 (L) 3.5 - 5.0 g/dL Final 03/25/2019 2.8 (L) 3.5 - 5.0 g/dL Final INR: INR Date Value Ref Range Status 03/20/2019 1.1 (L) 2.0 - 3.5 Final 03/06/2019 1.0 (L) 2.0 - 3.5 Final Chest X-Ray: pending Assessment: S/PCABG Acute blood loss anemia after surgery Diabetes mellitus Post-op metabolic encephalopathy with confusion-improving 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 Type 2 Diabetes is currently stable. 2. Status post CABG 3. Dyslipidemia 4. Essential hypertension 5. Osteoarthritis Treatment Options and Recommendations 1. Diabetes type 2. The patient has good control diabetes. He is on low-dose Lantus 10 units oncea day and NovoLog low-dose supplemental sliding scale. At home he was on metformin 500 mg once a day. His A1c was 7.2%. He was having stomach problems when he was taking higher dose of metformin. His blood sugar is well controlled right now. I will keep him on current treatment. He can resume metformin after discharge. 2. Dyslipidemia. Continue pravastatin 40 mg once a day. The diabetes consult service will answer pages from 7 AM to 7 PM. Please contact the primary team outside of these hours for urgent needs. Identifying Information / Chief Complaint Liang Yap is a 78yr old male admitted on 03/20/2019 5:00 AM. Chief Complaint: Type 2 Diabetes Interval History Interval History: He is stable. He is feeling well today. His appetite is better. He has been ambulating. He took a shower this morning. Review of Systems General: No fevers or chillsCV: No chest pain Respiratory: No shortness of breath Physical Exam Vital Signs: BP: 118/70 (03/25/19 1522) | Pulse: 84 (03/25/19 1605) | Resp: 16 ( 03/25/19 1600) Mental Status: alert Lungs: no dyspnea, clear to auscultation bilaterally, normal effort. Eyes: sclera anicteric Skin: No rashes, lesions, or nodules on limited exam Data Review Last A1C Lab Results Component Value Date HGBA1C 7.2 (H) 03/15/2019 Last 48 Hours Glucose POC Glucose 03/25/19 1125 03/25/19 0823 03/25/19 0440 03/24/19 2124 03/24/19 1703 POC Glucose 237 128 174 121 Lab Glucose 139 03/24/19 1145 03/24/19 0706 03/24/19 0608 POC Glucose 148 156 Lab Glucose 150 Odalis Aragon MD Gris Albrecht PA-C - 03/25/2019 8:22 AM CDT CVTS Progress Note POD #5 Subjective: Problems over the previous 24 hours: confusion/delirium. Today, patient is complaining of nothing. Objective: Admission weight: Weight: 95.7 kg (211 lb) Current weight: Weight: 97 kg (213 lb 13.5 oz) Urine Output: 2775 mL/24 hours Temp: 98.7 F (37.1 C) | BP: 138/73 | Pulse: 86 | Resp: 16 | Pain Ratin ( out of 10) | Weight:97 kg (213 lb 13.5 oz) | O2 Device: Room Air O2 Flow Rate (L/min): 0 l/min | SpO2: 94 % Maximum Temperatures (last 24 hours) Temperature Maximum Max Temp 99.1 F (37.3 C) Tele: normal sinus rhythm Heart: RRR Lungs: Wheezes and crackles bilaterally Extremities: no edema Incision(s): sternotomy clean, dry and intact and right leg clean, dry and intact Labs: CBC: WBC Date Value Ref Range Status 03/21/2019 19.4 (H) 4.0 - 11.0 K/uL Final 03/20/2019 22.7 (H) 4.0 - 11.0 K/uL Final Hemoglobin Date Value Ref Range Status 03/25/2019 10.2 (L) 13.5 - 17.5 g/dL Final 03/21/2019 11.2 (L) 13.5 - 17.5 g/dL Final Hematocrit Date Value Ref Range Status 03/21/2019 34.6 (L) 40.0 - 50.0 % Final 03/20/2019 41.9 40.0 - 50.0 % Final Platelet Count Date Value Ref Range Status 03/25/2019 294 140 - 400 K/uL Final 03/21/2019 145 140 - 400 K/uL Final Renal Function Panel: Sodium Date Value Ref Range Status 03/25/2019 139 135 - 145 meq/L Final 03/24/2019 138 135 - 145 meq/L Final Potassium Date Value Ref Range Status 03/25/2019 3.7 3.5 - 5.3 meq/L Final 03/24/2019 3.8 3.5 - 5.3 meq/L Final Chloride Date Value Ref Range Status 03/25/2019 104 99 - 110 meq/L Final 03/24/2019 103 99 - 110 meq/L Final CO2 Date Value Ref Range Status 03/25/2019 27 20 - 29 meq/L Final 03/24/2019 25 20 - 29 meq/L Final BUN Date Value Ref Range Status 03/25/2019 23 (H) 6 - 22 mg/dL Final 03/24/2019 22 6 - 22 mg/dL Final Creatinine Date Value Ref Range Status 03/25/2019 0.84 0.80 - 1.30 mg/dL Final 03/24/2019 0.87 0.80 - 1.30 mg/dL Final Glucose Date Value Ref Range Status 03/25/2019 139 (H) 70 - 100 mg/dL Final Glucose POC Date Value Ref Range Status 03/24/2019 174 (H) 70 - 100 mg/dL Final Calcium Date Value Ref Range Status 03/25/2019 8.6 8.5 - 10.5 mg/dL Final 03/24/2019 8.9 8.5 - 10.5 mg/dL Final Phosphorus Date Value Ref Range Status 03/25/2019 3.1 2.5 - 4.5 mg/dL Final 03/24/2019 3.0 2.5 - 4.5 mg/dL Final Albumin Date Value Ref Range Status 03/25/2019 2.8 (L) 3.5 - 5.0 g/dL Final 03/24/2019 3.1 (L) 3.5 - 5.0 g/dL Final INR: INR Date Value Ref Range Status 03/20/2019 1.1 (L) 2.0 - 3.5 Final 03/06/2019 1.0 (L) 2.0 - 3.5 Final Chest X-Ray: stable-atelectasis bilateral lung bases Assessment: S/PCABG Acute blood loss anemia after surgery Diabetes mellitus Post-op metabolic encephalopathy with confusion-improving Atrial fibrillation after surgical procedure Plan: Pulmonary toilet Start Lisinopril 5mg Continue aspirin, statin, amiodarone prophylaxis, scheduled neb treatments and SQ heparin OOB to chair Ambulate Cardiac rehab Continue PT/OT Keep central line Remove espinal Remove pacing wiresElectronically signed by Gris David PA-C at 2018 9:36 AM Odalis Hobbs MD - 03/24/2019 8:03 PM CDT DIABETES CONSULT SERVICE PROGRESS NOTE 03/24/2019 Assessment and Plan 1. Type 2 Diabetes is currently stable. 2. Status post CABG 3. Dyslipidemia 4. Essential hypertension 5. Osteoarthritis Treatment Options and Recommendations 1. Diabetes type 2. The patient has good control diabetes. He is on low-dose Lantus 10 units oncea day and NovoLog low-dose supplemental sliding scale. At home he was on metformin 500 mg once a day. His A1c was 7.2%. He was having stomach problems when he was taking higher dose of metformin. His blood sugar is well controlled right now. I am going to keep him on current treatment. 2. Dyslipidemia. Continue pravastatin 40 mg once a day. The diabetes consult service will answer pages from 7 AM to 7 PM. Please contact the primary team outside of these hours for urgent needs. Identifying Information / Chief Complaint Liang Yap is a 78yr old male admitted on 03/20/2019 5:00 AM. Chief Complaint: Type 2 Diabetes Interval History Interval History: He is stable. Review of Systems General: No fevers or chillsCV: No chest pain Respiratory: No shortness of breath Physical Exam Vital Signs: BP: 142/77 (03/24/191945) | Pulse: 95 (03/24/191945) | Resp: 16 ( 03/24/191931) Mental Status: alert Lungs: no dyspnea, clear to auscultation bilaterally, normal effort. Eyes: sclera anicteric Skin: No rashes, lesions, or nodules on limited exam Data Review Last A1C Lab Results Component Value Date HGBA1C 7.2 (H) 03/15/2019 Last 48 Hours Glucose POC Glucose 03/24/19 1703 03/24/19 1145 03/24/19 0706 03/24/19 0608 03/23/19 1301 POC Glucose 121 148 156 154 Lab Glucose 150 03/23/19 0601 POC Glucose Lab Glucose 149 Odalis Aragon MD Geraldine Ledesma MD - 03/24/2019 8:33 AM CDTCVTS STAFF PROGRESS NOTE Pt seen at bedside. Agree with progress note and plan as written by Gris David PA-C Mental status much improved today. Respiratory status also improved. Short period of AFib last night. Back in sinus. BPs better. CXR improved. CT removed. Espinal per urology. Titrate up BB and convert to oral amiodarone. OK to transfer to floor today. Increase rehab efforts. Gris Alrbecht PA-C - 2018 7:16 AM CDT CVTS ICU Progress Note POD #4 Subjective: Problems over the previous 24 hours: very short episode of AFib with RVR yesterday evening Current drips: amiodarone Pulmonary status: on nasal cannula oxygen @ 4L Objective: Admission weight: Weight: 95.7 kg (211 lb) Current weight: Weight: 97.9 kg (215 lb 13.3 oz) Left Pleural Chest Tube Output: 50 mL/24 hours Urine Output: 2050 mL/24 hours 5 mm Hg | | | SVR: 1051 (dyne*SEC)/cm5 | CO: 4.9 L/min | CI: 2.4 l/min/m2 Temp: 97.9 F (36.6 C) | BP: 113/95 | Pulse: 94 | Resp: 22 | Pain Ratin ( out of 10) | Weight:97.9 kg (215 lb 13.3 oz) | O2 Device: CPAP (non-invasive)( home cpap) O2 Flow Rate (L/min): 7 l/min | SpO2: 96 % Maximum Temperatures (last 24 hours) Temperature Maximum Max Temp 98.3 F (36.8 C) Tele: normal sinus rhythm Heart: RRR Lungs: Wheezes and crackles bilaterally Extremities: no edema Neuro: alert and oriented, moving all extremities, no apparent deficits, sedated and following commands Incision(s): sternotomy clean, dry and intact and right lower leg clean, dry and intact Labs: CBC: WBC Date Value Ref Range Status 03/21/2019 19.4 (H) 4.0 - 11.0 K/uL Final 03/20/2019 22.7 (H) 4.0 - 11.0 K/uL Final Hemoglobin Date Value Ref Range Status 03/21/2019 11.2 (L) 13.5 - 17.5 g/dL Final 03/20/2019 13.8 13.5 - 17.5 g/dL Final Hematocrit Date Value Ref Range Status 03/21/2019 34.6 (L) 40.0 - 50.0 % Final 03/20/2019 41.9 40.0 - 50.0 % Final Platelet Count Date Value Ref Range Status 03/21/2019 145 140 - 400 K/uL Final 03/20/2019 160 140 - 400 K/uL Final Renal Function Panel: Sodium Date Value Ref Range Status 03/24/2019 138 135 - 145 meq/L Final 03/23/2019 138 135 - 145 meq/L Final Potassium Date Value Ref Range Status 03/24/2019 3.8 3.5 - 5.3 meq/L Final 03/23/2019 4.3 3.5 - 5.3 meq/L Final Chloride Date Value Ref Range Status 03/24/2019 103 99 - 110 meq/L Final 03/23/2019 107 99 - 110 meq/L Final CO2 Date Value Ref Range Status 03/24/2019 25 20 - 29 meq/L Final 03/23/2019 25 20 - 29 meq/L Final BUN Date Value Ref Range Status 03/24/2019 22 6 - 22 mg/dL Final 03/23/2019 22 6 - 22 mg/dL Final Creatinine Date Value Ref Range Status 03/24/2019 0.87 0.80 - 1.30 mg/dL Final 03/23/2019 1.01 0.80 - 1.30 mg/dL Final Glucose Date Value Ref Range Status 03/24/2019 150 (H) 70 - 100 mg/dL Final Glucose POC Date Value Ref Range Status 03/24/2019 156 (H) 70 - 100 mg/dL Final Calcium Date Value Ref Range Status 03/24/2019 8.9 8.5 - 10.5 mg/dL Final 03/23/2019 8.9 8.5 - 10.5 mg/dL Final Phosphorus Date Value Ref Range Status 03/24/2019 3.0 2.5 - 4.5 mg/dL Final 03/23/2019 3.0 2.5 - 4.5 mg/dL Final Albumin Date Value Ref Range Status 03/24/2019 3.1 (L) 3.5 - 5.0 g/dL Final 03/23/2019 3.1 (L) 3.5 - 5.0 g/dL Final INR: INR Date Value Ref Range Status 03/20/2019 1.1 (L) 2.0 - 3.5 Final 03/06/2019 1.0 (L) 2.0 - 3.5 Final ABG: pH Arterial Date Value Ref Range Status 03/22/2019 7.42 7.35 - 7.45 Final 03/21/2019 7.33 (L) 7.35 - 7.45 Final pCO2 Arterial Date Value Ref Range Status 03/22/2019 40 35 - 45 mmHg Final 03/21/2019 41 35 - 45 mmHg Final pO2 Arterial Date Value Ref Range Status 03/22/2019 59 (L) 80 - 100 mmHg Final 03/21/2019 70 (L) 80 - 100 mmHg Final HCO3 (Bicarb) Date Value Ref Range Status 03/22/2019 26 20 - 29 mmol/L Final 03/21/2019 22 20 - 29 mmol/L Final Base Excess Arterial Date Value Ref Range Status 03/22/2019 2 -2 - 2 meq/L Final 03/21/2019 -4 (L) -2 - 2 meq/L Final Chest X-Ray: right effusion with improving aeration Assessment: S/PCABG Acute blood loss anemia after surgery Diabetes mellitus Post-op metabolic encephalopathy with confusion-improving Atrial fibrillation after surgical procedure Plan: Pulmonary toilet Increase Lopressor to 25mg BID Will stop amiodarone drip later today Continue aspirin, statin, amiodarone, scheduled neb treatments and SQ heparin OOB to chair Ambulate Cardiac rehab Continue PT/OT Keep central line Leave espinal due to hematuria-will remove per urology Remove left pleural chest tube Transfer to floor Zan Welsh MD - 03/23/2019 7:21 AM CDT DIABETES CONSULT SERVICE PROGRESS NOTE 03/23/2019 Assessment and Plan 1. Stress Hyperglycemia, postoperative 2. Type 2 Diabetes 3. S/p CABG 4. Dyslipidemia Patient feeling well. BG at goal. Eating better. Recommendations: -Continue Lantus 10 units in the morning -Low dose novolog correction scale with meals -Blood sugar targets will be from 140 to 180 while inpatient. -Pravastatin 40 mg daily -He will likely resume his outpatient diabetes regimen upon dismissal. -We will continue to follow. Thank you for the consult, please page [phone] to contact diabetes consult service with any questions. Identifying Information / Chief Complaint Liang Yap is a 78yr old male admitted on 03/20/2019 5:00 AM. CC: hyperglycemia, glucose management Interval History Patient reports feeling better today. BG well controlled. No hypoglycemia. Review of Systems General: Denies any fever or chillsCV: Denies chest pain Respiratory: Denies shortness of breath GI: Denies nausea, vomiting or abdominal pain, appetite is low. Physical Exam Vital Signs: BP: 118/83 (03/23/19 0600) | Pulse: 76 (03/23/19 0600) | Resp: 16 ( 03/23/19 0600) Gen: Comfortable, no distress Mental Status: Awake, oriented Eyes: sclera anicteric Skin: No rashes, lesions, or nodules on limited exam Ext: no edema Data Review Last A1C Lab Results Component Value Date HGBA1C 7.2 (H) 03/15/2019 Last 48 Hours Glucose POC Glucose 03/23/19 0601 03/22/19 1949 03/22/19 1640 03/22/19 0809 03/22/19 0353 POC Glucose 133 160 135 Lab Glucose 149 169 03/21/19 2216 03/21/19 1734 03/21/19 1134 POC Glucose 161 165 163 Lab Glucose Zan Newman MD Geraldine Ledesma MD - 03/23/2019 6:50 AM CDT CVTS ICU Progress Note POD #3 Subjective: Problems over the previous 24 hours: increasing delirium/confusion over the afternoon/evening. Also went into AFib but back in sinus now. Respiratory status borderline. Current drips: none Pulmonary status: NC 5 L Objective: Admission weight: Weight: 95.7 kg (211 lb) Current weight: Weight: 98.5 kg (217 lb 2.5 oz) Left Pleural Chest Tube Output: 120 mL/24 hours Urine Output: 1300 mL/24 hours 5 mm Hg | | | SVR: 1051 (dyne*SEC)/cm5 | CO: 4.9 L/min | CI: 2.4 l/min/m2 Temp: 97.3 F (36.3 C) | BP: 118/83 | Pulse: 76 | Resp: 16 | Pain Ratin ( out of 10) | Weight:97.6 kg (215 lb 2.7 oz) | O2 Device: CPAP (non-invasive) O2 Flow Rate (L/min): 5 l/min | SpO2: 93 % Maximum Temperatures (last 24 hours) Temperature Maximum Max Temp 98.6 F (37 C) Tele: normal sinus rhythm Heart: RRR Lungs: wheezes and scattered crackles bilaterally Extremities: mild edema Neuro: Alert, confused Incision(s): sternotomy OR dressing in place and left leg OR dressing in place Labs: CBC: WBC Date Value Ref Range Status 03/21/2019 19.4 (H) 4.0 - 11.0 K/uL Final 03/20/2019 22.7 (H) 4.0 - 11.0 K/uL Final Hemoglobin Date Value Ref Range Status 03/21/2019 11.2 (L) 13.5 - 17.5 g/dL Final 03/20/2019 13.8 13.5 - 17.5 g/dL Final Hematocrit Date Value Ref Range Status 03/21/2019 34.6 (L) 40.0 - 50.0 % Final 03/20/2019 41.9 40.0 - 50.0 % Final Platelet Count Date Value Ref Range Status 03/21/2019 145 140 - 400 K/uL Final 03/20/2019 160 140 - 400 K/uL Final Renal Function Panel: Sodium Date Value Ref Range Status 03/23/2019 138 135 - 145 meq/L Final 03/22/2019 137 135 - 145 meq/L Final Potassium Date Value Ref Range Status 03/23/2019 4.3 3.5 - 5.3 meq/L Final 03/22/2019 5.0 3.5 - 5.3 meq/L Final Chloride Date Value Ref Range Status 03/23/2019 107 99 - 110 meq/L Final 03/22/2019 110 99 - 110 meq/L Final CO2 Date Value Ref Range Status 03/23/2019 25 20 - 29 meq/L Final 03/22/2019 22 20 - 29 meq/L Final BUN Date Value Ref Range Status 03/23/2019 22 6 - 22 mg/dL Final 03/22/2019 16 6 - 22 mg/dL Final Creatinine Date Value Ref Range Status 03/23/2019 1.01 0.80 - 1.30 mg/dL Final 03/22/2019 0.92 0.80 - 1.30 mg/dL Final Glucose Date Value Ref Range Status 03/23/2019 149 (H) 70 - 100 mg/dL Final Glucose POC Date Value Ref Range Status 03/22/2019 133 (H) 70 - 100 mg/dL Final Calcium Date Value Ref Range Status 03/23/2019 8.9 8.5 - 10.5 mg/dL Final 03/22/2019 8.8 8.5 - 10.5 mg/dL Final Phosphorus Date Value Ref Range Status 03/23/2019 3.0 2.5 - 4.5 mg/dL Final 03/22/2019 2.1 (L) 2.5 - 4.5 mg/dL Final Albumin Date Value Ref Range Status 03/23/2019 3.1 (L) 3.5 - 5.0 g/dL Final 03/22/2019 3.2 (L) 3.5 - 5.0 g/dL Final INR: INR Date Value Ref Range Status 03/20/2019 1.1 (L) 2.0 - 3.5 Final 03/06/2019 1.0 (L) 2.0 - 3.5 Final ABG: pH Arterial Date Value Ref Range Status 03/22/2019 7.42 7.35 - 7.45 Final 03/21/2019 7.33 (L) 7.35 - 7.45 Final pCO2 Arterial Date Value Ref Range Status 03/22/2019 40 35 - 45 mmHg Final 03/21/2019 41 35 - 45 mmHg Final pO2 Arterial Date Value Ref Range Status 03/22/2019 59 (L) 80 - 100 mmHg Final 03/21/2019 70 (L) 80 - 100 mmHg Final HCO3 (Bicarb) Date Value Ref Range Status 03/22/2019 26 20 - 29 mmol/L Final 03/21/2019 22 20 - 29 mmol/L Final Base Excess Arterial Date Value Ref Range Status 03/22/2019 2 -2 - 2 meq/L Final 03/21/2019 -4 (L) -2 - 2 meq/L Final Chest X-Ray: right atelectasis and small effusion Assessment: S/P CABG Acute blood loss anemia after surgery Diabetes mellitus Post-op metabolic encephalopathy with confusion Atrial fibrillation after surgical procedure Plan: Aggressive Pulmonary toilet-scheduled nebs and EzPap increased to q 4 Continue aspirin, BB, statin, scheduled neb treatments and SQ heparin OOB to chair Ambulate Cardiac rehab Keep central line Keep chest tube to water seal Keep espinal due to gross hematuria with bladder irrigation - will remove per urology Keep in ICU Encourage po intake 6: 56 AM Geraldine Ledesma MD - 03/22/2019 8:10 AM CDTCVTS STAFF PROGRESS NOTE Pt seen at bedside. Agree with progress note and plan as written by Gris David PA-C Espinal pulled on causing bleeding. Espinal removed then had retention. Espinal replaced. Otherwise no issues. Starting BB and lasix. Pulmonary toilet. Continue rehab efforts. Zan Welsh MD - 03/22/2019 7:07 AM CDT DIABETES CONSULT SERVICE PROGRESS NOTE 03/22/2019 Assessment and Plan 1. Stress Hyperglycemia, postoperative 2. Type 2 Diabetes 3. S/p CABG 4. Dyslipidemia He feels well. Transitioned off insulin drip. Not eating much yet. Recommendations: -Lantus 10 units in the morning -Low dose novolog correction scale with meals once off insulin drip. -Blood sugar targets will be from 140 to 180 while inpatient. -Pravastatin 40 mg daily -He will likely resume his outpatient diabetes regimen upon dismissal. -We will continue to follow. Thank you for the consult, please page [phone] to contact diabetes consult service with any questions. Identifying Information / Chief Complaint Liang Yap is a 78yr old male admitted on 03/20/2019 5:00 AM. CC: hyperglycemia, glucose management Interval History Patient reports feeling well today. Not eating much yet. BG at goal. Review of Systems General: Denies any fever or chillsCV: Denies chest pain Respiratory: Denies shortness of breath GI: Denies nausea, vomiting or abdominal pain, appetite is low. Physical Exam Vital Signs: BP: 118/81 (03/22/19 0300) | Pulse: 94 (03/22/19 0300) | Resp: 18 ( 03/22/19 0300) Gen: Comfortable, no distress Mental Status: Awake, oriented Eyes: sclera anicteric Skin: No rashes, lesions, or nodules on limited exam Ext: no edema Data Review Last A1C Lab Results Component Value Date HGBA1C 7.2 (H) 03/15/2019 Last 48 Hours Glucose POC Glucose (Last 10 results in the past 48 hours) 03/22/19 0353 03/21/19 2216 03/21/19 1734 03/21/19 1134 03/21/19 0659 POC Glucose 161 165 163 137 Lab Glucose 169 03/21/19 0553 03/21/19 0500 03/21/19 0353 03/21/19 0351 03/21/19 0300 POC Glucose 143 152 143 134 Lab Glucose 145 Zan Newman MD ATBGris decker PA-Johnnie - 03/22/2019 6:48 AM CDT CVTS ICU Progress Note POD #2 Subjective: Problems over the previous 24 hours: espinal was pulled out last evening-urology consulted for hematuria. Current drips: none Pulmonary status: Home CPAP with 5 L Objective: Admission weight: Weight: 95.7 kg (211 lb) Current weight: Weight: 98.5 kg (217 lb 2.5 oz) Mediastinal Chest Tube Output: 70 mL/24 hours Left Pleural Chest Tube Output: 60 mL/24 hours Urine Output: 525 mL/24 hours 5 mm Hg | | | SVR: 1051 (dyne*SEC)/cm5 | CO: 4.9 L/min | CI: 2.4 l/min/m2 Temp: 98.7 F (37.1 C) | BP: 118/81 | Pulse: 94 | Resp: 18 | Pain Ratin ( out of 10) | Weight:98.5 kg (217 lb 2.5 oz) | O2 Device: CPAP (non-invasive) O2 Flow Rate (L/min): 5 l/min | SpO2: 95 % Maximum Temperatures (last 24 hours) Temperature Maximum Max Temp 100.2 F (37.9 C) Tele: normal sinus rhythm Heart: RRR Lungs: wheezes bilaterally Extremities: no edema Neuro: alert and oriented, moving all extremities and no apparent deficits Incision(s): sternotomy OR dressing in place and left leg OR dressing in place Labs: CBC: WBC Date Value Ref Range Status 03/21/2019 19.4 (H) 4.0 - 11.0 K/uL Final 03/20/2019 22.7 (H) 4.0 - 11.0 K/uL Final Hemoglobin Date Value Ref Range Status 03/21/2019 11.2 (L) 13.5 - 17.5 g/dL Final 03/20/2019 13.8 13.5 - 17.5 g/dL Final Hematocrit Date Value Ref Range Status 03/21/2019 34.6 (L) 40.0 - 50.0 % Final 03/20/2019 41.9 40.0 - 50.0 % Final Platelet Count Date Value Ref Range Status 03/21/2019 145 140 - 400 K/uL Final 03/20/2019 160 140 - 400 K/uL Final Renal Function Panel: Sodium Date Value Ref Range Status 03/22/2019 137 135 - 145 meq/L Final 03/21/2019 139 135 - 145 meq/L Final Potassium Date Value Ref Range Status 03/22/2019 5.0 3.5 - 5.3 meq/L Final 03/21/2019 5.0 3.5 - 5.3 meq/L Final Chloride Date Value Ref Range Status 03/22/2019 110 99 - 110 meq/L Final 03/21/2019 112 (H) 99 - 110 meq/L Final CO2 Date Value Ref Range Status 03/22/2019 22 20 - 29 meq/L Final 03/21/2019 20 20 - 29 meq/L Final BUN Date Value Ref Range Status 03/22/2019 16 6 - 22 mg/dL Final 03/21/2019 13 6 - 22 mg/dL Final Creatinine Date Value Ref Range Status 03/22/2019 0.92 0.80 - 1.30 mg/dL Final 03/21/2019 0.90 0.80 - 1.30 mg/dL Final Glucose Date Value Ref Range Status 03/22/2019 169 (H) 70 - 100 mg/dL Final Glucose POC Date Value Ref Range Status 03/21/2019 161 (H) 70 - 100 mg/dL Final Calcium Date Value Ref Range Status 03/22/2019 8.8 8.5 - 10.5 mg/dL Final 03/21/2019 8.0 (L) 8.5 - 10.5 mg/dL Final Phosphorus Date Value Ref Range Status 03/22/2019 2.1 (L) 2.5 - 4.5 mg/dL Final 03/21/2019 4.4 2.5 - 4.5 mg/dL Final Albumin Date Value Ref Range Status 03/22/2019 3.2 (L) 3.5 - 5.0 g/dL Final 03/21/2019 3.5 3.5 - 5.0 g/dL Final INR: INR Date Value Ref Range Status 03/20/2019 1.1 (L) 2.0 - 3.5 Final 03/06/2019 1.0 (L) 2.0 - 3.5 Final ABG: pH Arterial Date Value Ref Range Status 03/21/2019 7.33 (L) 7.35 - 7.45 Final 03/21/2019 7.31 (L) 7.35 - 7.45 Final pCO2 Arterial Date Value Ref Range Status 03/21/2019 41 35 - 45 mmHg Final 03/21/2019 43 35 - 45 mmHg Final pO2 Arterial Date Value Ref Range Status 03/21/2019 70 (L) 80 - 100 mmHg Final 03/21/2019 69 (L) 80 - 100 mmHg Final HCO3 (Bicarb) Date Value Ref Range Status 03/21/2019 22 20 - 29 mmol/L Final 03/21/2019 22 20 - 29 mmol/L Final Base Excess Arterial Date Value Ref Range Status 03/21/2019 -4 (L) -2 - 2 meq/L Final 03/21/2019 -5 (L) -2 - 2 meq/L Final Chest X-Ray: bilateral lower lobe atelectasis Assessment: S/P CABG Acute blood loss anemia after surgery Diabetes mellitus Plan: Wean oxygen as tolerated Pulmonary toilet-scheduled nebs and aerobika ordered Replace phosphorus Start beta raul Continue aspirin, amiodarone prophylaxis, scheduled neb treatments and SQ heparin OOB to chair Ambulate Cardiac rehab Keep central line Remove mediastinal chest tubes Keep chest tube to water seal Transfer to floor Urology consulted-keep espinal for now Zan Welsh MD - 03/21/2019 7:11 AM CDT DIABETES CONSULT SERVICE PROGRESS NOTE 03/21/2019 Assessment and Plan 1. Stress Hyperglycemia, postoperative 2. Type 2 Diabetes 3. S/p CABG 4. Dyslipidemia He has been extubated. Feeling better. Not eating yet. On insulin drip. Recommendations: -Will transition off insulin drip today, will give Lantus 10 and d/c insulin drip 2 hours after -Low dose novolog correction scale with meals once off insulin drip. -Blood sugar targets will be from 140 to 180 while inpatient. -Pravastatin 40 mg daily -He will likely resume his outpatient diabetes regimen upon dismissal. -We will continue to follow. Thank you for the consult, please page [phone] to contact diabetes consult service with any questions. Identifying Information / Chief Complaint Liang Yap is a 78yr old male admitted on 03/20/2019 5:00 AM. CC: hyperglycemia, glucose management Interval History Patient reports feeling better today. No nausea, no vomiting and not eating. Has remained hemodynamically stable. Review of Systems General: Denies any fever or chillsCV: Denies chest pain Respiratory: Denies shortness of breath GI: Denies nausea, vomiting or abdominal pain, appetite is low. Physical Exam Vital Signs: BP: 102/69 (03/20/19 1300) | Pulse: 83 (03/21/19 0700) | Resp: 15 ( 03/21/19 0700) Gen: Comfortable, no distress Mental Status: Awake, oriented Eyes: sclera anicteric Skin: No rashes, lesions, or nodules on limited exam Ext: no edema Data Review Last A1C Lab Results Component Value Date HGBA1C 7.2 (H) 03/15/2019 Last 48 Hours Glucose POC Glucose (Last 10 results in the past 48 hours) 03/21/19 0659 03/21/19 0553 03/21/19 0500 03/21/19 0353 03/21/19 0351 POC Glucose 137 143 152 143 Lab Glucose 145 03/21/19 0300 03/21/19 0201 03/21/19 0109 03/20/19 2359 03/20/19 2303 POC Glucose 134 116 139 131 134 Lab Glucose Zan Newman MD Geraldine Ledesma MD - 03/21/2019 6:51 AM CDTCVTS STAFF PROGRESS NOTE Pt seen at bedside. Agree with progress note and plan as written by Gris David PA-C Uneventful night. Almost off levo. Labs OK. Home CPAP overnight. Plan to transfer once off levo. OOB. Advance diet. Gris Albrecht PA-C - 03/21/2019 6:46 AM CDT CVTS ICU Progress Note POD #1 Subjective: Problems over the previous 24 hours: none. Current drips: norepinephrine @ 0.05 mcg/kg/min and insulin Pulmonary status: On CPAP with 5L Objective: Admission weight: Weight: 95.7 kg (211 lb) Current weight: Weight: 95.8 kg (211 lb 3.2 oz) Mediastinal Chest Tube Output: 650 mL/24 hours Left Pleural Chest Tube Output: 140 mL/24 hours Urine Output: 1580 mL/24 hours 8 mm Hg | | | SVR: 962 (dyne*SEC)/cm5 | CO: 5.1 L/min | CI: 2.5 l/min/m2 Temp: 99.7 F (37.6 C) | BP: 102/69 | Pulse: 85 | Resp: 14 | Pain Ratin ( out of 10) | Weight:95.8 kg (211 lb 3.2 oz) | O2 Device: NC - cool humidity O2 Flow Rate (L/min): 5 l/min | SpO2: 92 % Maximum Temperatures (last 24 hours) Temperature Maximum Max Temp 100 F (37.8 C) Tele: normal sinus rhythm Heart: RRR Lungs: decreased breath sounds bilateral Bases Extremities: no edema Neuro: alert and oriented, moving all extremities and no apparent deficits Incision(s): sternotomy OR dressing in place and right Lower leg OR dressing in place Labs: CBC: WBC Date Value Ref Range Status 03/21/2019 19.4 (H) 4.0 - 11.0 K/uL Final 03/20/2019 22.7 (H) 4.0 - 11.0 K/uL Final Hemoglobin Date Value Ref Range Status 03/21/2019 11.2 (L) 13.5 - 17.5 g/dL Final 03/20/2019 13.8 13.5 - 17.5 g/dL Final Hematocrit Date Value Ref Range Status 03/21/2019 34.6 (L) 40.0 - 50.0 % Final 03/20/2019 41.9 40.0 - 50.0 % Final Platelet Count Date Value Ref Range Status 03/21/2019 145 140 - 400 K/uL Final 03/20/2019 160 140 - 400 K/uL Final Renal Function Panel: Sodium Date Value Ref Range Status 03/21/2019 139 135 - 145 meq/L Final 03/20/2019 141 135 - 145 meq/L Final Potassium Date Value Ref Range Status 03/21/2019 5.0 3.5 - 5.3 meq/L Final 03/20/2019 4.5 3.5 - 5.3 meq/L Final Chloride Date Value Ref Range Status 03/21/2019 112 (H) 99 - 110 meq/L Final 03/20/2019 113 (H) 99 - 110 meq/L Final CO2 Date Value Ref Range Status 03/21/2019 20 20 - 29 meq/L Final 03/20/2019 19 (L) 20 - 29 meq/L Final BUN Date Value Ref Range Status 03/21/2019 13 6 - 22 mg/dL Final 03/20/2019 13 6 - 22 mg/dL Final Creatinine Date Value Ref Range Status 03/21/2019 0.90 0.80 - 1.30 mg/dL Final 03/20/2019 0.82 0.80 - 1.30 mg/dL Final Glucose POC Date Value Ref Range Status 03/21/2019 143 (H) 70 - 100 mg/dL Final 03/21/2019 152 (H) 70 - 100 mg/dL Final Calcium Date Value Ref Range Status 03/21/2019 8.0 (L) 8.5 - 10.5 mg/dL Final 03/20/2019 8.6 8.5 - 10.5 mg/dL Final Phosphorus Date Value Ref Range Status 03/21/2019 4.4 2.5 - 4.5 mg/dL Final 03/20/2019 3.0 2.5 - 4.5 mg/dL Final Albumin Date Value Ref Range Status 03/21/2019 3.5 3.5 - 5.0 g/dL Final 03/20/2019 3.3 (L) 3.5 - 5.0 g/dL Final INR: INR Date Value Ref Range Status 03/20/2019 1.1 (L) 2.0 - 3.5 Final 03/06/2019 1.0 (L) 2.0 - 3.5 Final ABG: pH Arterial Date Value Ref Range Status 03/21/2019 7.33 (L) 7.35 - 7.45 Final 03/21/2019 7.31 (L) 7.35 - 7.45 Final pCO2 Arterial Date Value Ref Range Status 03/21/2019 41 35 - 45 mmHg Final 03/21/2019 43 35 - 45 mmHg Final pO2 Arterial Date Value Ref Range Status 03/21/2019 70 (L) 80 - 100 mmHg Final 03/21/2019 69 (L) 80 - 100 mmHg Final HCO3 (Bicarb) Date Value Ref Range Status 03/21/2019 22 20 - 29 mmol/L Final 03/21/2019 22 20 - 29 mmol/L Final Base Excess Arterial Date Value Ref Range Status 03/21/2019 -4 (L) -2 - 2 meq/L Final 03/21/2019 -5 (L) -2 - 2 meq/L Final Chest X-Ray: atelectasis bilateral bases Assessment: S/P CABG Acute blood loss anemia after surgery Diabetes mellitus Plan: Wean vasoactive drips as tolerated Wean oxygen as tolerated Pulmonary toilet Continue aspirin, amiodarone, scheduled neb treatments and SQ heparin OOB to chair Ambulate Cardiac rehab Keep central line Water seal chest tubes Potential transfer later today Tres Lopez [facility] - 03/20/2019 5:51 AM CDT 03/20/2019 05:51 Patient was seen by pharmacy for medication reconciliation. Home medications have been reconciled and updated on the home medications list to match the patient's home usage. Medications Deleted: Medications Added: Other information: Prior to Admission Medications Prescriptions Last Dose Informant Patient Reported? Taking? amLODIPine (NORVASC) 10 mg tablet 03/20/2019 at 0400 Self Yes Yes Sig: Take 10 mg by mouth 1 time per day. aspirin 81 mg enteric coated tablet 03/18/2019 at am Self Yes Yes Sig: Take 81 mg by mouth 1 time per day. cyanocobalamin (VITAMIN B-12) 500 mcg tablet 03/18/2019 at am Self Yes Yes Sig: Take 1,000 mcg by mouth 1 time per day. lisinopril (PRINIVIL, ZESTRIL) 10 mg tablet 03/18/2019 at Unknown time Self Yes Yes Sig: Take 10 mg by mouth 1 time per day. 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) XRAY CHEST PA AND LATERAL Routine S/P CABG (coronary artery Expected: 2018 bypass graft) (Approximate), Expires: 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) COMPLETE BLOOD COUNT WITH Routine S/P CABG (coronary artery Expected: 2018 DIFFERENTIAL bypass graft) (Approximate), Expires: 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) BASIC METABOLIC PANEL Routine S/P CABG (coronary artery Expected: 04/27/2019 bypass graft) (Approximate), Expires: 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) Health Maintenance Due Date Last Done Comments Amiodarone ALT 1942 Amiodarone AST 1942 Amiodarone TSH 1942 Tetanus Vaccine 1960 Zoster Vaccine (1 of 2 - 1992 RZV,Shingrix) [employer] Directive 2007 document Pneumococcal 65yr+ Low/Med Risk (1 2007 of 2 - PCV13) Influenza Vaccine (#1) 2018 08/29/2013, 09/08/2012 Lipid Screening 03/06/2020 03/06/2019 Amiodarone Chest X-ray 03/27/2020 03/27/2019, 03/26/2019, 03/25/2019, Additional history exists Diabetes Screening 03/27/2022 03/27/2019, 03/26/2019, 03/25/2019, Additional history exists documented as of this encounter Implants Implanted Type Area Records Management Analyst Device Shelf Model / Identifier Expiration Serial / Date Lot Kelli Arechiga Ccs 4-18 N [id number]/[id number] - [id number] N/A: [employer] [id number] / Implanted: Qty: 2 on 03/20/2019 by Geraldine Davila MD / documented as of this encounter Procedures Procedure Name Priority Date/Time Associated Comments Diagnosis GLUCOSE BY METER, Routine 03/28/2019 8:04 Results for this POCT AM CDT procedure are in the results section. GLUCOSE BY METER, Routine 03/27/2019 11:53 Results for this POCT PM CDT procedure are in the results section. GLUCOSE BY METER, Routine 03/27/2019 5:06 Results for this POCT PM CDT procedure are in the results section. GLUCOSE BY METER, Routine 03/27/2019 11:15 Results for this POCT AM CDT procedure are in the results section. GLUCOSE BY METER, Routine 03/27/2019 7:26 Results for this POCT AM CDT procedure are in the results section. XRAY CHEST PORTABLE Routine 03/27/2019 5:30 Results for this AM CDT procedure are in the results section. RENAL FUNCTION PANEL Routine 03/27/2019 4:30 Results for this AM CDT procedure are in the results section. GLUCOSE BY METER, Routine 03/26/2019 8:52 Results for this POCT PM CDT procedure are in the results section. GLUCOSE BY METER, Routine 03/26/2019 5:12 Results for this POCT PM CDT procedure are in the results section. GLUCOSE BY METER, Routine 03/26/2019 11:32 Results for this POCT AM CDT procedure are in the results section. GLUCOSE BY METER, Routine 03/26/2019 8:43 Results for this POCT AM CDT procedure are in the results section. CLOSTRIDIUM Routine 03/26/2019 8:17 Results for this DIFFICILE BY NAAT AM CDT procedure are in (PCR/LAMP) the results section. XRAY CHEST PORTABLE Routine 03/26/2019 5:38 Results for this AM CDT procedure are in the results section. RENAL FUNCTION PANEL Routine 03/26/2019 4:52 Results for this AM CDT procedure are in the results section. GLUCOSE BY METER, Routine 03/25/2019 8:48 Results for this POCT PM CDT procedure are in the results section. GLUCOSE BY METER, Routine 03/25/2019 5:13 Results for this POCT PM CDT procedure are in the results section. GLUCOSE BY METER, Routine 03/25/2019 11:25 Results for this POCT AM CDT procedure are in the results section. GLUCOSE BY METER, Routine 03/25/2019 8:23 Results for this POCT AM CDT procedure are in the results section. XRAY CHEST PORTABLE Routine 03/25/2019 5:15 Results for this AM CDT procedure are in the results section. PLATELET COUNT Routine 03/25/2019 4:40 Results for this AM CDT procedure are in the results section. HEMOGLOBIN Routine 03/25/2019 4:40 Results for this AM CDT procedure are in the results section. RENAL FUNCTION PANEL Routine 03/25/2019 4:40 Results for this AM CDT procedure are in the results section. GLUCOSE BY METER, Routine 03/24/2019 9:24 Results for this POCT PM CDT procedure are in the results section. GLUCOSE BY METER, Routine 03/24/2019 5:03 Results for this POCT PM CDT procedure are in the results section. GLUCOSE BY METER, Routine 03/24/2019 11:45 Results for this POCT AM CDT procedure are in the results section. GLUCOSE BY METER, Routine 03/24/2019 7:06 Results for this POCT AM CDT procedure are in the results section. RENAL FUNCTION PANEL Routine 03/24/2019 6:08 Results for this AM CDT procedure are in the results section. XRAY CHEST PORTABLE Routine 03/24/2019 5:20 Results for this AM CDT procedure are in the results section. CULTURE BACTERIAL, Routine 03/23/2019 4:51 Results for this URINE PM CDT procedure are in the results section. GLUCOSE BY METER, Routine 03/23/2019 1:01 Results for this POCT PM CDT procedure are in the results section. RENAL FUNCTION PANEL Routine 03/23/2019 6:01 Results for this AM CDT procedure are in the results section. XRAY CHEST PORTABLE Routine 03/23/2019 5:02 Results for this AM CDT procedure are in the results section. EKG Routine 03/23/2019 12:19 Results for this AM CDT procedure are in the results section. BLOOD GASES ARTERIAL SONNY 03/22/2019 9:18 Results for this PM CDT procedure are in the results section. GLUCOSE BY METER, Routine 03/22/2019 7:49 Results for this POCT PM CDT procedure are in the results section. GLUCOSE BY METER, Routine 03/22/2019 4:40 Results for this POCT PM CDT procedure are in the results section. GLUCOSE BY METER, Routine 03/22/2019 8:09 Results for this POCT AM CDT procedure are in the results section. XRAY CHEST PORTABLE Routine 03/22/2019 5:09 Results for this AM CDT procedure are in the results section. RENAL FUNCTION PANEL Routine 03/22/2019 3:53 Results for this AM CDT procedure are in the results section. GLUCOSE BY METER, Routine 03/21/2019 10:16 Results for this POCT PM CDT procedure are in the results section. GLUCOSE BY METER, Routine 03/21/2019 5:34 Results for this POCT PM CDT procedure are in the results section. GLUCOSE BY METER, Routine 03/21/2019 11:34 Results for this POCT AM CDT procedure are in the results section. GLUCOSE BY METER, Routine 03/21/2019 6:59 Results for this POCT AM CDT procedure are in the results section. EKG Routine 03/21/2019 6:53 Results for this AM CDT procedure are in the results section. GLUCOSE BY METER, Routine 03/21/2019 5:53 Results for this POCT AM CDT procedure are in the results section. BLOOD GASES ARTERIAL Routine 03/21/2019 5:38 Results for this AM CDT procedure are in the results section. XRAY CHEST PORTABLE Routine 03/21/2019 5:05 Results for this AM CDT procedure are in the results section. GLUCOSE BY METER, Routine 03/21/2019 5:00 Results for this POCT AM CDT procedure are in the results section. BLOOD GAS ARTERIAL Routine 03/21/2019 3:53 Results for this WITH IONIZED CALCIUM AM CDT procedure are in the results section. COMPLETE BLOOD COUNT Routine 03/21/2019 3:53 Results for this WITHOUT DIFFERENTIAL AM CDT procedure are in the results section. RENAL FUNCTION PANEL Routine 03/21/2019 3:53 Results for this AM CDT procedure are in the results section. GLUCOSE BY METER, Routine 03/21/2019 3:51 Results for this POCT AM CDT procedure are in the results section. GLUCOSE BY METER, Routine 03/21/2019 3:00 Results for this POCT AM CDT procedure are in the results section. GLUCOSE BY METER, Routine 03/21/2019 2:01 Results for this POCT AM CDT procedure are in the results section. GLUCOSE BY METER, Routine 03/21/2019 1:09 Results for this POCT AM CDT procedure are in the results section. GLUCOSE BY METER, Routine 03/20/2019 11:59 Results for this POCT PM CDT procedure are in the results section. GLUCOSE BY METER, Routine 03/20/2019 11:03 Results for this POCT PM CDT procedure are in the results section. GLUCOSE BY METER, Routine 03/20/2019 10:06 Results for this POCT PM CDT procedure are in the results section. GLUCOSE BY METER, Routine 03/20/2019 8:59 Results for this POCT PM CDT procedure are in the results section. GLUCOSE BY METER, Routine 03/20/2019 7:51 Results for this POCT PM CDT procedure are in the results section. GLUCOSE BY METER, Routine 03/20/2019 6:53 Results for this POCT PM CDT procedure are in the results section. POTASSIUM Routine 03/20/2019 6:53 Results for this PM CDT procedure are in the results section. BLOOD GAS ARTERIAL Timed Routine 03/20/2019 5:13 Results for this WITH IONIZED CALCIUM PM CDT procedure are in the results section. GLUCOSE BY METER, Routine 03/20/2019 5:13 Results for this POCT PM CDT procedure are in the results section. BLOOD GAS ARTERIAL Routine 03/20/2019 4:06 Results for this WITH IONIZED CALCIUM PM CDT procedure are in the results section. GLUCOSE BY METER, Routine 03/20/2019 4:06 Results for this POCT PM CDT procedure are in the results section. BLOOD GAS ARTERIAL Routine 03/20/2019 3:02 Results for this WITH IONIZED CALCIUM PM CDT procedure are in the results section. GLUCOSE BY METER, Routine 03/20/2019 3:02 Results for this POCT PM CDT procedure are in the results section. BLOOD GAS ARTERIAL Timed Routine 03/20/2019 1:54 Results for this WITH IONIZED CALCIUM PM CDT procedure are in the results section. GLUCOSE BY METER, Routine 03/20/2019 1:53 Results for this POCT PM CDT procedure are in the results section. GLUCOSE BY METER, Routine 03/20/2019 12:54 Results for this POCT PM CDT procedure are in the results section. BLOOD GAS ARTERIAL Timed Routine 03/20/2019 12:53 Results for this WITH IONIZED CALCIUM PM CDT procedure are in the results section. GLUCOSE BY METER, Routine 03/20/2019 11:40 Results for this POCT AM CDT procedure are in the results section. BLOOD GAS ARTERIAL Timed Routine 03/20/2019 11:38 Results for this WITH IONIZED CALCIUM AM CDT procedure are in the results section. PTT SONNY 03/20/2019 11:38 Results for this AM CDT procedure are in the results section. PROTIME/INR SONNY 03/20/2019 11:38 Results for this AM CDT procedure are in the results section. FIBRINOGEN SONNY 03/20/2019 11:38 Results for this AM CDT procedure are in the results section. COMPLETE BLOOD COUNT SONNY 03/20/2019 11:38 Results for this WITHOUT DIFFERENTIAL AM CDT procedure are in the results section. RENAL FUNCTION PANEL SONNY 03/20/2019 11:38 Results for this AM CDT procedure are in the results section. XRAY CHEST PORTABLE STAT 03/20/2019 11:33 Results for this AM CDT procedure are in the results section. OR PANEL 1 POCT Routine 03/20/2019 10:46 Results for this AM CDT procedure are in the results section. HEPARIN ASSAY Routine 03/20/2019 10:34 Results for this AM CDT procedure are in the results section. ACTIVATED CLOTTING Routine 03/20/2019 10:34 Results for this TIME POCT AM CDT procedure are in the results section. OR PANEL 1 POCT Routine 03/20/2019 10:29 Results for this AM CDT procedure are in the results section. HEPARIN ASSAY Routine 03/20/2019 10:13 Results for this AM CDT procedure are in the results section. ACTIVATED CLOTTING Routine 03/20/2019 10:13 Results for this TIME POCT AM CDT procedure are in the results section. OR PANEL 1 POCT Routine 03/20/2019 10:06 Results for this AM CDT procedure are in the results section. HEPARIN ASSAY Routine 03/20/2019 9:54 Results for this AM CDT procedure are in the results section. ACTIVATED CLOTTING Routine 03/20/2019 9:54 Results for this TIME POCT AM CDT procedure are in the results section. OR PANEL 1 POCT Routine 03/20/2019 9:47 Results for this AM CDT procedure are in the results section. HEPARIN ASSAY Routine 03/20/2019 9:25 Results for this AM CDT procedure are in the results section. ACTIVATED CLOTTING Routine 03/20/2019 9:25 Results for this TIME POCT AM CDT procedure are in the results section. OR PANEL 1 POCT Routine 03/20/2019 9:18 Results for this AM CDT procedure are in the results section. HEPARIN ASSAY Routine 03/20/2019 8:53 Results for this AM CDT procedure are in the results section. ACTIVATED CLOTTING Routine 03/20/2019 8:53 Results for this TIME POCT AM CDT procedure are in the results section. HEPARIN DOSE Routine 03/20/2019 7:19 Results for this RESPONSE AM CDT procedure are in the results section. ACTIVATED CLOTTING Routine 03/20/2019 7:19 Results for this TIME POCT AM CDT procedure are in the results section. OR PANEL 1 POCT Routine 03/20/2019 7:13 Results for this AM CDT procedure are in the results section. BYPASS CORONARY 03/20/2019 6:45 CVD ARTERY AM CDT (cardiovascular disease) Special Needs takes Lisinopril at 0700am GLUCOSE BY METER, POCT Routine 03/20/2019 5:59 AM CDT ABO AND RH STAT 03/20/2019 5:49 AM CDT documented in this encounter Results GLUCOSE BY METER, POCT (03/28/2019 8:04 AM CDT)Only the most recent of44 resultswithin the time period is included. Glucose POC 112 (H) 70 - 100 mg/dL [facility] POINT OF CARE TESTING Specimen Blood - Blood Performing Organization Address City/State/Zipcode Phone Number [facility] POINT OF [address] [place] [place] [address] CARE TESTING XRAY CHEST PORTABLE - (03/27/2019 5:30 AM CDT)Only the most recent of8 resultswithin the time period is included. Narrative Performed At [facility] Patient Name: LIANG YAP Date of :1940 Procedure: XRAY CHEST PORTABLE Date of Service: 03/27/2019 EXAM: XRAY CHEST PORTABLE INDICATION: Postop Cardiothoracic Surgery . TECHNIQUE: Single AP portable chest radiograph, one view. COMPARISON:03/26/2019. FINDINGS: EKG leads overlie the thorax. There is a right IJ central vascular catheter with its distal tip projecting over the expected location of the SVC. The cardiomediastinal silhouette is enlarged and stable. The trachea is midline. There is bibasilar atelectasis. There is blunting of the costophrenic angles.There is no pneumothorax. The visualized osseous structures and soft tissues are stable.There are median sternotomy wires. IMPRESSION: 1.Left greater than right small to trace bilateral pleural effusions with bibasilar atelectasis. 2.Improved aeration when compared to one day prior. 3.No pneumothorax. 4.Central pulmonary vascular congestion left hemithorax. 5.Elevation of the left hemidiaphragm. Finalized by: Suzi Redding MD on 03/27/2019 9:15 AM Patient/Procedure Information: [facility] MRN/JAYME: [id number] Order Number: [id number] Accession Number: [id number] Ordering Provider: GERALDINE DAVILA Authorizing Provider: GERALDINE DAVILA Procedure Note [facility], [facility] - 03/27/2019 9:17 AM CDT Patient Name: LIANG YAP Date of : 1940 Procedure: XRAY CHEST PORTABLE Date of Service: 03/27/2019 EXAM: XRAY CHEST PORTABLE INDICATION: Postop Cardiothoracic Surgery . TECHNIQUE: Single AP portable chest radiograph, one view. COMPARISON:03/26/2019. FINDINGS: EKG leads overlie the thorax. There is a right IJ central vascular catheter with its distal tip projecting over the expected location of the SVC. The cardiomediastinal silhouette is enlarged and stable. The trachea is midline. There is bibasilar atelectasis. There is blunting of the costophrenic angles. There is no pneumothorax. The visualized osseous structures and soft tissues are stable. There are median sternotomy wires. IMPRESSION: 1. Left greater than right small to trace bilateral pleural effusions with bibasilar atelectasis. 2. Improved aeration when compared to one day prior. 3. No pneumothorax. 4. Central pulmonary vascular congestion left hemithorax. 5. Elevation of the left hemidiaphragm. Finalized by: Suzi Redding MD on 03/27/2019 9:15 AM Patient/Procedure Information: [facility] MRN/JAYME: [id number] Order Number: [id number] Accession Number: [id number] Ordering Provider: GERALDINE DAVILA Authorizing Provider: GERALDINE DAVILA Performing Organization Address [facility] Phone Number [id number] RENAL FUNCTION PANEL (03/27/2019 4:30 AM CDT)Only the most recent of8 resultswithin the time period is included. Glucose 132 (H) 70 - 100 mg/dL [address] BUN 19 6 - 22 mg/dL [address] Creatinine 0.80 0.80 - 1.30 mg/dL [address] BUN/Creatinine Ratio 23.8 10.0 - 25.[address] Sodium 141 135 - 145 meq/L [address] Potassium 4.8 3.5 - 5.3 meq/L [address] Chloride 105 99 - 110 meq/L [address] CO2 22 20 - 29 meq/L [address] Anion Gap with K 19 6 - 20 meq/L [address] Calcium 8.3 (L) 8.5 - 10.5 mg/dL [address] Phosphorus 3.9 2.5 - 4.5 mg/dL [address] Albumin 2.6 (L) 3.5 - 5.0 g/dL [address] Corrected Calcium 9.4 8.5 - 10.5 mg/dL [address] Age [address] eGFR Non- >90 >=60 mL/min/1.73m2 [place] [address] [facility] eGFR >90 >=60 mL/min/1.73m2 [address] Specimen Blood - Blood Performing Organization Address [facility] Phone Number [place] [address] [facility] [address] [place] [facility] [place] [address] CLOSTRIDIUM DIFFICILE BY NAAT (PCR/LAMP) (03/26/2019 8:17 AM CDT) C difficile Toxin B Gene NAD DETECTED (A) Not Detected [facility] Specimen Feces - Feces Narrative Performed At This test was performed by polymerase chain reaction (PCR) [facility] on the GeneXpert instrument. Performing Organization Address [facility] Phone Number [facility] [address] [facility] [place] [address] HEMOGLOBIN (03/25/2019 4:40 AM CDT) Hemoglobin 10.2 (L) 13.5 - 17.5 g/dL [address] Specimen Blood - Blood Performing Organization Address [facility] Phone Number [address] [place] [address] PLATELET COUNT (03/25/2019 4:40 AM CDT) Platelet Count 294 140 - 400 K/uL [address] Specimen Blood - Blood Performing Organization Address [facility] Number [address] [place] [address] CULTURE BACTERIAL, URINE (03/23/2019 4:51 PM CDT) Culture Result No growth [facility] Specimen Urine - Cath-Indwelling Performing Organization [facility] Number [facility] [address] [place] [address] EKG (03/23/2019 12:19 AM CDT)Only the most recent of2 resultswithin the time period is included. EKG [facility] Atrial fibrillation with rapid ventricular response Low voltage QRS, consider pulmonary disease, pericardial effusion, or normal variant Nonspecific ST and T wave abnormality Abnormal ECG When compared with ECG of 21-MAR-2019 06:53, Atrial fibrillation has replaced Sinus rhythm Vent. rate has increased BY88 BPM T wave inversion now evident in Anterior leads Ventricular Rate: 170 BPM Atrial Rate: 187 BPM QRS Duration: 92 ms Q-T Interval: 240 ms QTc Calculation(Bazett): 403 ms Calculated R Larwill: 28 degrees Calculated T [place]: -18 degrees Narrative Performed At Performing Organization Address [facility] Phone Number TRACERaisedDigitalSTER SAVANNA B BLOOD GASES ARTERIAL (03/22/2019 9:18 PM CDT)Only the most recent of2 resultswithin the time period is included. pH Arterial 7.42 7.35 - 7.45 [facility] - RESPIRATORY THERAPY pCO2 Arterial 40 35 - 45 mmHg [facility] RESPIRATORY [facility] pO2 Arterial 59 (L) 80 - 100 mmHg [facility] RES[facility]IRATORY [facility] Base Excess Arterial 2 -2 - 2 meq/L [facility] RESPIRATORY THERAPY HCO3 (Bicarb) 26 20 - 29 mmol/L [facility] RES[facility]IRATORY [facility] O2 Sat % Arterial 91 (L) 95 - 98 % [facility] RES[facility]IRATORY [facility] Carbon Monoxide 0.8 0.0 - 3.0 % [facility] Methemoglobin 0.5 0.0 - 3.0 % [facility] RESPIRATORY [facility] p50 24.16 (L) 25.00 - 29.[address] [facility] Allens Test Positive [facility] RESPIRATORY [facility] Collection Site Arterial Lt radial [facility] O2 Source Nasal Cannula [facility] RESPIRATORY [facility] Specimen Blood - Arterial Narrative Performed At [address] [facility] Performing Organization Address City/State/Zipcode Phone Number [facility] - [address], [place] [address] RESPIRATORY THERAPY BLOOD GAS ARTERIAL WITH IONIZED CALCIUM (03/21/2019 3:53 AM CDT)Only the most recent of7 resultswithin the time period is included. pH Arterial 7.31 (L) 7.35 - 7.45 [facility] RESPIRATORY THERAPY pCO2 Arterial 43 35 - 45 mmHg [facility] RESPIRATORY [facility] pO2 Arterial 69 (L) 80 - 100 mmHg [facility] RESPIRATORY [facility] Base Excess Arterial -5 (L) -2 - 2 meq/L [facility] RESPIRATORY [facility] HCO3 (Bicarb) 22 20 - 29 mmol/L [facility] RESPIRATORY [facility] O2 Sat % Arterial 92 (L) 95 - 98 % [facility] RESPIRATORY [facility] Carbon Monoxide 0.9 0.0 - 3.0 % [facility] - RESPIRATORY [facility] Methemoglobin 0.5 0.0 - 3.0 % [facility] - RESPIRATORY THERAPY p50 25.87 25.00 - 29.00 [facility] mmHg [place] [facility] RESPIRATORY [facility] Allens Test Not Done-Drawn From [facility] Line [facility] RESPIRATORY [facility] Collection Site Arterial Arterial Line [facility] O2 Source Nasal [facility] CannulaComment: 5 [place] - RESPIRATORY lpm THERAPY Ionized Calcium 1.15 1.12 - 1.32 [facility] mmol/L [facility] Specimen Blood - Arterial Performing Organization Address [facility] Cent[facility]ode Phone Number [facility] - [address], [place] [address] RESPIRATORY THERAPY COMPLETE BLOOD COUNT WITHOUT DIFFERENTIAL (03/21/2019 3:53 AM CDT)Only the most recent of2 resultswithin the time period is included. WBC 19.4 (H) 4.0 - 11.0 K/uL [address] RBC 4.09 (L) 4.40 - 5.80 M/uL [address] Hemoglobin 11.2 (L) 13.5 - 17.5 g/dL [address] Hematocrit 34.6 (L) 40.0 - 50.0 % [address] MCV 84.6 80.0 - 98.[address] MCH 27.4 25.5 - 34.[address] MCHC 32.4 31.5 - 36.5 g/dL [address] RDW-CV 16.2 (H) 11.5 - 15.5 % [address] RDW-SD 50.3 (H) 35.5 - 50.[address] Platelet Count 145 140 - 400 K/uL [address] MPV 11.8 8.5 - 12.[address] Specimen Blood - Blood Performing Organization Address [facility] Phone Number [address], [place] [address] POTASSIUM (03/20/2019 6:53 PM CDT) Potassium 4.5 3.5 - 5.3 meq/L [address] Specimen Blood - Blood Performing Organization Address [facility] Phone Number [address] [place] [address] FIBRINOGEN (03/20/2019 11:38 AM CDT) Fibrinogen 278 200 - 450 mg/dL [address] Specimen Blood - Blood Performing Organization Address [facility] Phone Number [address] [place] [address] PTT (03/20/2019 11:38 AM CDT) APTT 37 (H) 24 - [address] Specimen Blood - Blood Performing Organization Address [facility] Phone Number [address] [place] [address] PROTIME/INR (03/20/2019 11:38 AM CDT) Protime 14.5 12.0 - 14.[address] INR 1.1 (L) 2.0 - 3.[address] Specimen Blood - Blood Narrative Performed At Normal INR reference range (patients not on oral [address] anticoagulants)0.9-1.1. INR Standard Intensity=(2.0 - 3.0) INR Higher Intensity=(2.5 - 3.5) Performing Organization Address [facility] Phone Number [address] [place] [address] OR PANEL 1 POCT (03/20/2019 10:46 AM CDT)Only the most recent of6 resultswithin the time period is included. pH Arterial POCT 7.34 (L) 7.35 - 7.45 [facility] POINT OF CARE TESTING pCO2 Arterial POCT 40 35 - 45 mmHg [facility] POINT OF CARE TESTING pO2 Arterial POCT 68 (L) 80 - 100 mmHg [facility] POINT OF CARE TESTING HCO3 (Bicarb) Arterial POCT 21 20 - 29 mmol/L [facility] POINT OF CARE TESTING Base Excess Arterial POCT -4 (L) -2 - 2 meq/L [facility] POINT OF CARE TESTING O2 Sat % Arterial POCT 92 (L) 95 - 98 % [facility] POINT OF CARE TESTING Ionized Calcium 1.30 1.12 - 1.32 mmol/L [facility] POINT OF CARE TESTING Sodium 144 135 - 145 meq/L [facility] POINT OF CARE TESTING Potassium 3.6 3.5 - 5.3 meq/L [facility] POINT OF CARE TESTING Glucose 170 (H) 70 - 100 mg/dL [facility] POINT OF CARE TESTING Hematocrit 38.0 (L) 40.0 - 50.0 % [facility] POINT OF CARE TESTING Hemoglobin 12.9 (L) 13.5 - 17.5 g/dL [facility] POINT OF CARE TESTING Specimen Source Arterial [facility] POINT OF CARE TESTING Specimen Blood - Blood Narrative Performed At Whole blood sample. Unable to evaluate for [facility] POINT OF CARE hemolysis. TESTING Performing Organization Address [facility] Phone Number [facility] POINT OF [address] [place] [address] CARE TESTING ACTIVATED CLOTTING TIME POCT (03/20/2019 10:34 AM CDT)Only the most recent of6 resultswithin the time period is included. Activated Clotting Time 112 100 - 150 Secs [facility] POINT OF CARE TESTING Specimen Blood - Blood Performing Organization Address [facility] Phone Number [facility] OF [address] [place] [phone] CARE TESTING HEPARIN ASSAY (03/20/2019 10:34 AM CDT)Only the most recent of5 resultswithin the time period is included. Heparin Assay 0 No Reference Range Established [facility] U/Kg POINT OF CARE TESTING Specimen Blood - Blood Performing Organization Address [facility]ode Phone Number [facility] POINT OF [address] [place] [address] CARE TESTING HEPARIN DOSE RESPONSE (03/20/2019 7:19 AM CDT) Heparin Dose Response 310 No Reference Range Established [facility] U/Kg [place] POINT OF CARE TESTING Heparin Sarpy 82 70 - 90 Sec/Unit/mL [facility] POINT OF CARE TESTING Specimen Blood - Blood Performing Organization Address [facility] Phone Number [facility] POINT OF [address] [facility] [place] [address] CARE TESTING ABO & RH G (03/20/2019 5:49 AM CDT) ABO Type O [address] BLOOD BANK Rh Type Positive [address] BLOOD BANK Specimen Blood - Blood Performing Organization Address [facility]/Zipcode Phone Number [address] BLOOD BANK [address] [facility] [place] [address] documented in this encounter Visit Diagnoses Diagnosis S/P CABG (coronary artery bypass graft) - Primary 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) CAD (coronary artery disease) Coronary atherosclerosis of unspecified type of vessel, tuscarora or graft documented in this encounter Administered Medications Medication Order MAR Action Action Date Dose Rate Site acetaminophen (TYLENOL) tablet Given 03/28/2019 8:27 AM CDT 1,000 mg 1,000 mg 1,000 mg, Oral, Three times a day, First dose on Wed03/21/19 at 0900, Until Discontinued, Total dose of acetaminophen from all acetaminophen containing products should not exceed 4 grams (4000 mg) per day., Given 03/27/2019 9:13 PM CDT 1,000 mg Given 03/27/2019 3:41 PM CDT 1,000 mg amiodarone (CORDARONE, PACERONE) tablet 200 Given 03/28/2019 8:27 AM CDT 200 mg mg 200 mg, Oral, Two times a day, First dose on Wed03/27/19 at 0900, Until Discontinued, Post - Op, Hold for HR < 65, Given 03/27/2019 9:13 PM CDT 200 mg Given 03/27/2019 9:25 AM CDT 200 mg aspirin tablet 325 mg Given 03/28/2019 8:25 AM CDT 325 mg 325 mg, Oral, Daily, First dose on Wed03/21/19 at 0900, Until Discontinued Given 03/27/2019 9:25 AM CDT 325 mg Given 03/26/2019 8:47 AM CDT 325 mg benzocaine-menthol (CEPACOL w/ BENZOCAINE) lozenge 1 lozenge 1 lozenge, Mouth/Throat, Every four hours prn, Starting Wed03/22/19 at 0652, Until Discontinued, sore throat, cough or dry throat carbohydrate 30 g 30 g, Oral, PRN per parameter, Starting Wed03/20/19 at 1119, Until Discontinued , other (Specify), for FIRST blood glucose less than 70 mg/dL, Post - Op, - Patient is alert and taking Orals - Check blood glucose 30 minutes after administration - 30 grams carbohydrate=8 oz of fruit juice, dextrose 50% IV solution 25 mL 25 mL, IV, PRN per parameter, Starting Wed03/20/19 at 1119, Until Discontinued , other (Specify), for FIRST blood glucose less than 70 mg/dL, 50 mL, Post - Op, - Patient not alert or if NPO - Check blood glucose 30 minutes after administration, dextrose chewable tablet 24 g 24 g (6 tablet), Oral, PRN per parameter, Starting Wed03/20/19 at 1119, Until Discontinued, other (Specify), for FIRST blood glucose less than 70 mg/dL, Post - Op, - Patient is alert and taking Orals - Check blood glucose 30 minutes after administration, heparin (porcine) injection solution Given 03/28/2019 5:21 AM CDT 5,000 Units 5,000 Units 5,000 Units, Subcutaneous, Every eight hours, First dose on Wed03/21/19 at 0600, Until Discontinued, 1 mL, Post - Op Given 03/27/2019 9:14 PM CDT 5,000 Units Given 03/27/2019 1:00 PM CDT 5,000 Units HYDROcodone-acetaminophen (NORCO) 5-325 mg tablet 1 tablet 1 tablet, Oral, Every six hours prn, Starting Wed03/24/19 at 1933, Until Discontinued, Pain, Total dose of acetaminophen from all acetaminophen containing products should not exceed 4 grams (4000 mg) per day., insulin aspart (NovoLOG) SQ correction Given 03/27/2019 1:00 PM CDT 2 Units scale (Adult) 2-8 Units, Subcutaneous, Three times a day with meals, First dose on Wed03/21/19 at 0730, Until Discontinued, 0.08 mL, Patient is eating LOW DOSE insulin aspart (NovoLOG) subcutaneous correction scale. ONCE OFF INSULIN DRIP Premeal Blood Glucose=Insulin Dose 150-199 2 units 200-249 3 units 250-299 5 units 300-349 7 units Over 349 8 units, Given 03/26/2019 12:14 PM CDT 2 Units Given 03/25/2019 2:05 PM CDT 3 Units insulin glargine (LANTUS) SQ injection Given 03/28/2019 8:28 AM CDT 10 Units 10 Units, Subcutaneous, DAILY, First dose on Wed03/21/19 at 0720, Until Discontinued, 0.1 mL, Do not hold. Call provider if blood glucose less than 100 mg/dl, if patient changed to NPO or if tube feedings stopped. PLEASE STOP INSULIN DRIP 2 HOURS AFTER GIVING LANTUS., Given 03/27/2019 9:35 AM CDT 10 Units Given 03/26/2019 8:48 AM CDT 10 Units lisinopril (PRINIVIL, ZESTRIL) tablet 10 mg Given 03/28/2019 8:27 AM CDT 10 mg 10 mg, Oral, Daily, First dose on Wed03/26/19 at 0900, Until Discontinued, Hold for SBP less than 100, Given 03/27/2019 9:25 AM CDT 10 mg Given 03/26/2019 8:47 AM CDT 10 mg melatonin tablet 3 mg Given 03/27/2019 9:14 PM CDT 3 mg 3 mg, Oral, Bedtime, First dose on Wed03/23/19 at 2100, Until Discontinued Given 03/26/2019 7:37 PM CDT 3 mg Given 03/25/2019 8:45 PM CDT 3 mg metoclopramide (REGLAN) tablet 10 mg 10 mg, Oral, Three times a day prn, Starting Wed03/22/19 at 0652, Until Discontinued, nausea, before meals as needed for nausea metoprolol tartrate (LOPRESSOR) tablet 25 mg Given 03/28/2019 8:27 AM CDT 25 mg 25 mg, Oral, Two times a day, First dose on Wed03/24/19 at 0900, Until Discontinued, Hold for SBP less than 100 Hold for HR less than 60, Given 03/27/2019 9:14 PM CDT 25 mg Given 03/27/2019 9:25 AM CDT 25 mg multivitamin therapeutic with minerals Given 03/28/2019 8:27 AM CDT 1 tablet (THERA-M) tablet 1 tablet 1 tablet, Oral, Daily, First dose on Wed03/21/19 at 0900, Until Discontinued Given 03/27/2019 9:24 AM CDT 1 tablet Given 03/26/2019 8:46 AM CDT 1 tablet pravastatin (PRAVACHOL) tablet 40 mg Given 03/28/2019 8:26 AM CDT 40 mg 40 mg, Oral, DAILY, First dose on Wed03/21/19 at 0900, Until Discontinued Given 03/27/2019 9:25 AM CDT 40 mg Given 03/26/2019 8:46 AM CDT 40 mg tamsulosin (FLOMAX) capsule 0.4 mg Given 03/27/2019 9:14 PM CDT 0.4 mg 0.4 mg, Oral, Bedtime, First dose on Wed03/26/19 at 2100, Until Discontinued, Swallow cap whole. Do not crush, chew or open., Given 03/26/2019 7:36 PM CDT 0.4 mg vancomycin oral solution (50 mg/mL) 125 mg Given 03/28/2019 8:28 AM CDT 125 mg 125 mg, Oral, Four times a day, 36 doses, First dose on Wed03/27/19 at 0900, Last dose on Wed04/04/19 at 2100, 2.5 mL, Adults: Nurse, please dilute dose in 30 mL water prior to administration., Given 03/27/2019 9:28 PM CDT 125 mg Given 03/27/2019 5:08 PM CDT 125 mg Medication Order MAR Action Action Date Dose Rate Site acetaminophen (TYLENOL) tablet Given 03/20/2019 4:34 PM CDT 650 mg 650 mg 650 mg, Oral, Every four hours prn, Starting Wed03/20/19 at 1119, Until Wed03/21/19 at 1118, mild pain, fever > (indicate temp), fever greater than 101 F, Post - Op, Oral or NG, albumin (human) 5 % IV solution 12.5 g Given 03/21/2019 2:19 AM CDT 12.5 g 12.5 g (250 mL), IV, PRN per parameter, Starting Wed03/20/19 at 1119, Until Wed03/23/19 at 0643, other (Specify), blood pressure and CI parameters in admin instructions, 250 mL, Post - Op, Administer as needed for volume replacement for systolic BP < 100 and/or cardiac index < 2.0 associated with stroke volume < 50 May give up to up to 1000 mL albumin - Call if more volume is felt to be needed, Given 03/20/2019 1:25 PM CDT 12.5 g Given 03/20/2019 11:45 AM CDT 12.5 g albuterol (PROVENTIL) (2.5 mg/3mL) 0.083% Given 03/20/2019 3:30 PM CDT 2.5 mg inhalation soln 2.5 mg 2.5 mg, Nebulization, Every two hours, 3 doses, First dose on Wed03/20/19 at 1200, Last dose on Wed03/20/19 at 1600, 3 mL, Post - Op Given 03/20/2019 1:52 PM CDT 2.5 mg Given 03/20/2019 12:05 PM CDT 2.5 mg albuterol (PROVENTIL) (2.5 mg/3mL) 0.083% Given 03/21/2019 8:49 AM CDT 2.5 mg inhalation soln 2.5 mg 2.5 mg, Nebulization, Every four hours, First dose on Wed03/20/19 at 1900, Until Discontinued, 3 mL, Post - Op Given 03/21/2019 4:30 AM CDT 2.5 mg Given 03/21/2019 12:07 AM CDT 2.5 mg albuterol-ipratropium (DUO-NEB) 2.5-0.5 mg/3 Given 03/22/2019 8:46 PM CDT 3 mL mL inhalation solution 3 mL 3 mL, Nebulization, Four times a day, First dose on Wed03/22/19 at 0800, Until Discontinued, 3 mL Given 03/22/2019 4:19 PM CDT 3 mL Given 03/22/2019 12:54 PM CDT 3 mL albuterol-ipratropium (DUO-NEB) 2.5-0.5 mg/3 Given 03/24/2019 9:05 AM CDT 3 mL mL inhalation solution 3 mL 3 mL, Nebulization, Every four hours, First dose on Wed03/23/19 at 0800, Until Discontinued, 3 mL Given 03/24/2019 4:22 AM CDT 3 mL Given 03/24/2019 12:19 AM CDT 3 mL albuterol-ipratropium (DUO-NEB) 2.5-0.5 mg/3 Given 03/26/2019 8:26 PM CDT 3 mL mL inhalation solution 3 mL 3 mL, Nebulization, Four times a day, First dose on Wed03/24/19 at 1200, Until Discontinued, 3 mL Given 03/26/2019 11:58 AM CDT 3 mL Given 03/26/2019 8:13 AM CDT 3 mL aminocaproic acid Already Infusing 03/20/2019 11:54 AM CDT 5,000 mg 24 mL/ hr (AMICAR) 5,000 mg in dextrose 5% 100 mL 5,000 mg (5 g), IV, at 24 mL/hr, Continuous, Starting Wed03/20/19 at 0745, Until Wed03/20/19 at 1116, 120 mL, Pre - Op, Infuse at 1 gm/hr., amiodarone (CORDARONE, PACERONE) tablet 400 Given 03/22/2019 9:21 PM CDT 400 mg mg 400 mg, Oral, Two times a day, First dose on Wed03/20/19 at 2100, Until Discontinued, Post - Op, Hold for HR < 65, Given 03/22/2019 8:06 AM CDT 400 mg Given 03/21/2019 8:23 PM CDT 400 mg amiodarone (CORDARONE, PACERONE) tablet 400 Given 03/26/2019 7:37 PM CDT 400 mg mg 400 mg, Oral, Two times a day, First dose on Wed03/23/19 at 2100, Until Discontinued, Post - Op, Hold for HR < 65, Given 03/26/2019 8:46 AM CDT 400 mg Given 03/25/2019 8:45 PM CDT 400 mg amiodarone (NEXTERONE) 1.8 New Bag 03/23/2019 6:22 AM CDT 1 mg/min 33.3 mL /hr mg/mL in D5W IV infusion (premix) 1 mg/min (33.3333 mL/hr, rounded to 33.3 mL/hr), IV, at 33.3 mL/hr, Continuous, Starting Wed03/23/19 at 0130, Until Wed03/23/19 at 0729, 200 mL, Infuse using a 0.2 or 0.22 micron filter. Infuse at 1 mg/min x 6 hours. If possible, run in a dedicated central line., New Bag 03/23/2019 12:56 AM CDT 1 mg/min 33.3 mL/hr amiodarone (NEXTERONE) 1.8 New Bag 03/24/2019 5:42 AM CDT 0.5 mg/min 16.7 mL/hr mg/mL in D5W IV infusion (premix) 0.5 mg/min (16.6667 mL/hr, rounded to 16.7 mL/hr), IV, at 16.7 mL/hr, Continuous, Starting Wed03/23/19 at 0730, Until Wed03/24/19 at 0837, 200 mL, Infuse using a 0.2 or 0.22 micron filter. Infuse at 0.5 mg/min. If possible, run in a dedicated central line., New Bag 03/23/2019 4:55 PM CDT 0.5 mg/min 16.7 mL/hr Rate Change 03/23/2019 8:08 AM CDT 0.5 mg/min 16.7 mL/hr amiodarone (NEXTERONE) 150 mg/100 mL in Given 03/23/2019 12:37 AM CDT 150 mg dextrose IV loading dose (premix) 150 mg, IV, One time, 1 dose, Franny 03/23/19 at 0130, 100 mL, Infuse using a 0.2 or 0.22 micron filter. If possible, run in a dedicated central line. Administer over 10 minutes., aspirin tablet 325 mg Given 03/20/2019 8:33 PM CDT 325 mg 325 mg, Oral, One time, 1 dose, Wed03/20/19 at 1600 ceFAZolin (ANCEF) 2000 mg/20 mL sterile Given 03/21/2019 8:22 AM CDT 2,000 mg water IV syringe 2,000 mg, IV, Every eight hours, 3 doses, First dose on Wed03/20/19 at 1800, Last dose on Wed03/21/19 at 1000, 20 mL, Post - Op, Administer as IV push over 4 minutes., Given 03/21/2019 2:15 AM CDT 2,000 mg Given 03/20/2019 6:31 PM CDT 2,000 mg chlorhexidine (PERIDEX) 0.12 % solution 15 mL Given 03/20/2019 12:48 PM CDT 15 mL 15 mL, Mouth/Throat, Two times a day, First dose on Wed03/20/19 at 1200, Until Discontinued, 473 mL, Post - Op, Swab and suction while mechanically ventilated. Discontinue when extubated, dexmedetomidine (PRECEDEX) Rate Change 03/20/2019 4:35 PM 0.2 mcg/kg/hr 4.8 mL/hr 4 mcg/mL in sodium CDT chloride 0.9% 100 mL IV infusion 0-0.4 mcg/kg/hr 95.7 kg (0-9.57 mL/hr, rounded to 0-9.6 mL/hr), IV, at 0-9.6 mL/hr, Titrate, Starting Wed03/20/19 at 1200, Until Wed03/21/19 at 0648, 100 mL, Post - Op, Initiate infusion at 0.1 mcg/kg/hr. Increase by 0.1 mcg/kg/hr increments every 15 minutes until patient has achieved a RASS score 0. If the RASS score is 0 on current infusion rate, decrease infusion by 0.1 mcg/kg/hr every 15 minutes to acheive a RASS score of 0 on lowest effective rate. Document titrations in One Chart (MAR or I&O Flowsheet medication group). Discontinue after extubation, Rate Change 03/20/2019 2:20 PM CDT 0.3 mcg/kg/hr 7.2 mL/hr Rate Change 03/20/2019 12:10 PM CDT 0.4 mcg/kg/hr 9.6 mL/hr docusate sodium (COLACE) capsule 200 mg Given 03/24/2019 7:54 PM CDT 200 mg 200 mg, Oral, Two times a day, First dose on Wed03/21/19 at 0900, Until Discontinued, Swallow cap whole. Should not be crushed or chewed., Given 03/24/2019 8:02 AM CDT 200 mg Given 03/23/2019 10:09 PM CDT 200 mg famotidine (PEPCID) IV solution 20 mg Given 03/21/2019 8:23 AM CDT 20 mg 20 mg, IV, Two times a day, First dose on Wed03/20/19 at 2100, Until Discontinued, 2 mL, Post - Op, Until extubated then discontinue First draw up patient specific dose, then dilute to 10 mL with 0.9% sodium chloride and administer over 2 minutes., Given 03/20/2019 9:00 PM CDT 20 mg furosemide (LASIX) injection solution 20 mg Given 03/25/2019 5:44 AM CDT 20 mg 20 mg, IV, Two times a day before meals, 7 doses, First dose on Wed03/22/19 at 0810, Last dose on 03/25/19 at 0700, 2 mL, If preference is to further dilute for IV administration: First draw up patient-specific dose, then dilute to 10 mL with 0.9% sodium chloride. Administer SLOW IV push., Given 03/24/2019 5:47 PM CDT 20 mg Given 03/24/2019 5:42 AM CDT 20 mg gabapentin (NEURONTIN) capsule 300 mg Given 03/23/2019 8:08 AM CDT 300 mg 300 mg, Oral, Three times a day, First dose on Wed03/20/19 at 1500, Until Discontinued Given 03/22/2019 9:21 PM CDT 300 mg Given 03/22/2019 1:43 PM CDT 300 mg insulin (regular) drip (1 Rate Verify 03/21/2019 7:00 AM 1.5 Units/hr 1.5 mL/hr unit/mL) for post open CDT hearts 0-20 Units/hr (0-20 mL/hr), IV, at 0-20 mL/hr, Titrate, Starting Wed03/20/19 at 1200, Until Wed03/21/19 at 0930, 100 mL, See Protocol Link for initial bolus/infusion rate. Maintenance Insulin bolus/infusion rate: If blood glucose less than 70 mg/dL initiate hypoglycemia treatment If blood glucose 70-99 mg/dL - STOP infusion, check blood glucose in 30 minutes If blood glucose 100-119 mg/dL - DECREASE infusion rate by 50% If blood glucose 120-150 mg/dL - NO CHANGE (Target Range), If blood glucose 151-170 mg/dL - INCREASE infusion rate by 0.5 units/hr If blood glucose 171-190 mg/dL - INCREASE infusion rate by 1 unit/hr If blood glucose 191-250 mg/dL - Give 2 units regular insulin IV BOLUS, INCREASE rate of infusion by 2 units/hr and CHECK blood glucose in 30 minutes If blood glucose greater than 250 mg/dL - Give 4 units regular insulin IV BOLUS, INCREASE rate of infusion by 3 units/hr and CHECK blood glucose in 30 minutes - May adjust insulin rate by up to 2 units/hr to maintain target range - If blood glucose decreases by greater than 100 mg/dL since previous check, reduce insulin infusion rate by 50% and recheck blood glucose in 30 minutes., Rate Verify 03/21/2019 5:54 AM CDT 1.5 Units/hr 1.5 mL/hr Rate Change 03/21/2019 5:01 AM CDT 1.5 Units/hr 1.5 mL/hr ketorolac (TORADOL) intravenous injection 15 Given 03/24/2019 6:39 PM CDT 15 mg mg 15 mg, IV, Every eight hours prn, Starting Wed03/24/19 at 0837, Until 03/25/19 at 0840, severe pain, other (Specify), Breakthrough pain, 1 mL, If preference is to further dilute for IV administration: First draw up patient-specific dose, then dilute to 10 mL with 0.9% sodium chloride., Given 03/24/2019 10:38 AM CDT 15 mg lidocaine 2% gel (Urojet)~ Given 03/21/2019 8:34 PM CDT 10 mL 10 mL, Urethral, One time, 1 dose, 03/21/19 at 2020, 10 mL, To urethra for comfort upon insertion of urinary catheter., lisinopril (PRINIVIL, ZESTRIL) tablet 5 mg Given 03/25/2019 9:41 AM CDT 5 mg 5 mg, Oral, Daily, First dose on Wed03/25/19 at 0900, Until Discontinued, Hold for SBP less than 100, magnesium sulfate 2 gm/50 mL IV solution 2 g Given 03/24/2019 8:02 AM CDT 2 g 2 g, IV, Daily, 5 doses, First dose on Wed03/20/19 at 1120, Last dose on Wed03/24/19 at 0900, 50 mL, First dose immediately post op and continuing for 4 days post op, Given 03/23/2019 8:07 AM CDT 2 g Given 03/22/2019 8:07 AM CDT 2 g metoprolol tartrate (LOPRESSOR) tablet 12.5 Given 03/23/2019 10:09 PM CDT 12.5 mg mg 12.5 mg, Oral, Two times a day, First dose on Wed03/22/19 at 0900, Until Discontinued, Hold for SBP less than 100 Hold for HR less than 60, Given 03/23/2019 8:07 AM CDT 12.5 mg Given 03/22/2019 9:21 PM CDT 12.5 mg NORepinephrine 32 mcg/mL Rate Change 03/20/2019 9:46 PM 0.05 mcg/kg/min 9 mL/hr in sodium chloride 0.9% CDT 250 mL 0-1 mcg/kg/min 95.7 kg (0-179.4375 mL/hr, rounded to 0-179.4 mL/hr), IV, at 0-179.4 mL/hr, Titrate, Starting Wed03/20/19 at 1200, Until Wed03/22/19 at 0657, 250 mL, Post - Op, Initiate the infusion at 0.03-0.1 mcg/kg/minute. Increase or decrease the infusion by 0.01 to 0.02 mcg/kg/min every minute to keep SBP > 100 mmHg. When discontinuing or weaning, decrease dose gradually by 0.01 - 0.02 mcg/kg/minute every 5 minutes as tolerated to prevent severe hypotension. Document titrations in One Chart (MAR or I&O Flowsheet medication group). Central line preferred if available. Acceptable to give peripherally for urgent need and one-time administration. Pursue a central line for continuous use greater than 24 hours., Rate Change 03/20/2019 8:29 PM CDT 0.04 mcg/kg/min 7.2 mL/hr Rate Change 03/20/2019 2:09 PM CDT 0.05 mcg/kg/min 9 mL/hr polyethylene glycol (MIRALAX) packet 1 Given 03/24/2019 8:02 AM CDT 1 packet packet 1 packet, Oral, Daily, First dose on Wed03/21/19 at 0900, Until Discontinued, Dissolve in 8 ounces of water, juice, soda, coffee, tea., Given 03/23/2019 8:08 AM CDT 1 packet Given 03/22/2019 8:07 AM CDT 1 packet potassium chloride 40 mEq/100 mL sterile Given 03/20/2019 12:59 PM CDT 40 mEq water IV piggyback 40 mEq, IV, PRN per parameter, Starting Wed03/20/19 at 1119, Until Wed03/22/19 at 0657, other (Specify), K+=3.6 - 3.7, 100 mL, Post - Op, 3.6 - 3.7 -- 40 mEq IV over 4 hr via central line Consult with MD before administering if urine output less than 30 ml/hr OR SCr greater than 1.5, propofol (DIPRIVAN) 1000 mg/100 mL IV Given 03/20/2019 11:25 AM CDT 50 mcg/ kg/min emulsion 1 dose, Starting Wed03/20/19 at 1117, Until Wed03/20/19 at 1125, [place]: cabinet override, scopolamine Applied 03/20/2019 5:56 AM 1 patch Behind Right Ear (TRANSDERM-SCOP) patch 1 CDT Transdermal patch 1 patch, Transdermal, Every forty eight hours, 1 dose, First dose on Wed03/20/19 at 0515, Administer over 48 Hours sodium chloride 0.9% IV solution Rate Change 03/22/2019 6:58 AM CDT 50 mL/hr IV, at 50 mL/hr, Continuous, Starting Wed03/20/19 at 1200, Until Wed03/22/19 at 0806, 1,000 mL, Post - Op New Bag 03/21/2019 8:32 PM CDT 80 mL/hr New Bag 03/21/2019 5:44 AM CDT 80 mL/hr sodium phosphates 30 mmol in dextrose 5% Given 03/22/2019 8:06 AM CDT 30 mmol 250 mL 30 mmol, IV, One time, 1 dose, Wed03/22/19 at 0740, 250 mL tamsulosin (FLOMAX) capsule 0.4 mg Given 03/24/2019 7:53 PM CDT 0.4 mg 0.4 mg, Oral, Bedtime, First dose on Wed03/20/19 at 2100, Until Discontinued, Swallow cap whole. Do not crush, chew or open., Given 03/23/2019 10:09 PM CDT 0.4 mg Given 03/22/2019 9:22 PM CDT 0.4 mg tamsulosin (FLOMAX) capsule 0.8 mg Given 03/25/2019 8:45 PM CDT 0.8 mg 0.8 mg, Oral, Bedtime, First dose on 03/25/19 at 2100, Until Discontinued, Swallow cap whole. Do not crush, chew or open., traMADol (ULTRAM) tablet 50 mg Given 03/22/2019 9:21 PM CDT 50 mg 50 mg, Oral, Four times a day prn, Starting 03/20/19 at 1119, Until Franny 03/23/19 at 0643, moderate pain, Post - Op, Recommended maximum daily dose of knosbpse=586 mg. Recommended maximum daily dose in patients 75 years or zyddx=407 mg., Given 03/22/2019 1:43 PM CDT 50 mg Given 03/22/2019 8:06 AM CDT 50 mg vancomycin oral solution (50 mg/mL) 125 mg Given 03/26/2019 10:20 PM CDT 125 mg 125 mg, Oral, Four times a day, First dose on 03/26/19 at 1300, Until Discontinued, 2.5 mL, Adults: Nurse, please dilute dose in 30 mL water prior to administration., Given 03/26/2019 5:14 PM CDT 125 mg Given 03/26/2019 12:38 PM CDT 125 mg documented in this encounter
[2019-03-30] MEDS: Tamsulosin 0.4 MG Cap.ER PO SCH (20:45)
[2019-03-31] MEDS: Insulin Lispro 100 Units/ML 3 ML Vial SUBCUT SCH ×2 (08:09→12:02)
[2019-03-31] MEDS: Cyanocobalamin (Vitamin B12) 1,000 MCG Tab PO SCH (08:45)
[2019-03-31] MEDS: Lisinopril 10 MG Tab PO SCH (08:45)
[2019-03-31] MEDS: Pravastatin 20 MG Tab PO SCH (08:46)
[2019-03-31] MEDS: Aspirin 325 MG Tab.EC PO SCH (08:46)
[2019-03-31] MEDS: Metoprolol Tartrate 25 MG Tab PO SCH (08:47)
[2019-03-31] MEDS: Vancomycin 50 MG/ML Oral Solution Bottle Kit PO SCH ×2 (08:48→13:19)
[2019-03-31] MEDS: traMADol 50 MG Tab PO PRN (10:07)
--- NOTE | 2019-03-31 14:41 | PCM.DCSUM1 ---
Discharge Summary - Hospital Course Free Text/Narrative:: 78 yo M with PMH of CAD, HTN, who recently had CABG at [facility] on 03/20 and admitted to our facility for PT/OT as a swing bed patient. During his hospitalization in [place], had diarrhea and c diff and was started on oral vanc. 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 Patient progressed well with physical and occupational therapy in the hospital. He was continued on oral vancomycin for C. difficile. His letter discharged home in stable condition. - Discharge Data Discharge Date: 03/31/19 Discharge Disposition: Home, Self-Care 01 Condition: Good - Patient Summary/Data Consults: Consultations 03/28/19 16:22 OT Evaluation and Treatment [CONS] Routine PT Evaluation and Treatment [CONS] Routine - Discharge Plan *PRESCRIPTION DRUG MONITORING PROGRAM REVIEWED*: No *COPY OF PRESCRIPTION DRUG MONITORING REPORT IN PATIENT MICHELLE: No Prescriptions/Med Rec: Aspirin 325 mg PO DAILY #30 tablet Cyanocobalamin (Vitamin B-12) [B-12] 1,000 mcg PO DAILY #30 tab Lisinopril 10 mg PO DAILY #30 tab Metoprolol Tartrate [Lopressor] 25 mg PO BID #60 tablet Pravastatin Sodium [Pravastatin (Pravachol)] 40 mg PO DAILY #30 tablet Home Medications: Home Meds Tamsulosin HCl 0.4 mg PO BEDTIME 10/10/18 [History] Amiodarone [Cordarone] 200 mg PO BID 03/28/19 [History] Vancomycin HCl [Vancocin HCl] 125 mg PO QID 03/28/19 [History] traMADol [Ultram] 50 mg PO Q6H PRN 03/28/19 [History] Aspirin 325 mg PO DAILY #30 tablet 03/31/19 [Rx] Cyanocobalamin (Vitamin B-12) [B-12] 1,000 mcg PO DAILY #30 tab 03/31/19 [Rx] Lisinopril 10 mg PO DAILY #30 tab 03/31/19 [Rx] Metoprolol Tartrate [Lopressor] 25 mg PO BID #60 tablet 03/31/19 [Rx] Pravastatin Sodium [Pravastatin (Pravachol)] 40 mg PO DAILY #30 tablet 03/31/19 [Rx] - Discharge Summary/Plan Comment DC Time >30 min.: Yes - General Info Date of Service: 03/31/19 Admission Dx/Problem (Free Text: Admission Diagnosis/Problem Admission Diagnosis/Problem Debility - Review of Systems General: Reports: No Symptoms HEENT: Reports: No Symptoms Pulmonary: Reports: No Symptoms Cardiovascular: Reports: No Symptoms Gastrointestinal: Reports: No Symptoms Genitourinary: Reports: No Symptoms Musculoskeletal: Reports: No Symptoms Skin: Reports: No Symptoms Neurological: Reports: No Symptoms Psychiatric: Reports: No Symptoms - Patient Data Vitals - Most Recent: Last Vital Signs Temp 36.3 C 03/31/19 08:00 Pulse 75 03/31/19 08:47 Resp 16 03/31/19 08:00 BP 121/75 03/31/19 08:47 Pulse Ox 98 03/31/19 08:00 Weight - Most Recent: 94.801 kg I&O - Last 24 hours: Intake & Output 03/30/19 03/31/19 03/31/19 22:59 06:59 14:59 Intake Total 100 1680 Balance 100 1680 Lab Results - Last 24 hrs: Laboratory Results - last 24 hr 03/30/19 03/31/19 03/31/19 Range/Units 17:01 07:52 12:00 POC Glucose 126 H 131 H 116 H (83-110) mg/dl Med Orders - Current: Current Medications Aspirin (Ecotrin) 325 mg PO DAILY [facility] Last Admin: 03/31/19 08:46 Dose: 325 mg Cyanocobalamin (Vitamin B12) 1,000 mcg PO DAILY [facility] Last Admin: 03/31/19 08:45 Dose: 1,000 mcg Insulin Human Lis[facility] ([facility]alog) [facility] Protocol Last Admin: 03/31/19 12:02 Dose: Not Given Lisinopril (Prinivil) 10 mg PO DAILY [facility] Last Admin: 03/31/19 08:45 Dose: 10 mg Metoprolol Tartrate (Lopressor) 25 mg PO BID [facility] Last Admin: 03/31/19 08:47 Dose: 25 mg Pravastatin Sodium (Pravachol) 40 mg PO DAILY [facility] Last Admin: 03/31/19 08:46 Dose: 40 mg Tamsulosin HCl (Flomax) 0.4 mg PO BEDTIME [facility] Last Admin: 03/30/19 20:45 Dose: 0.4 mg Tramadol HCl (Ultram) 50 mg PO Q6H PRN PRN Reason: Pain (moderate 4-6) Last Admin: 03/31/19 10:07 Dose: 50 mg Vancomycin HCl (Vancomycin 50 Mg/Ml Soln) 125 mg PO QID GINA Stop: 04/07/19 13:01 Last Admin: 03/31/19 13:19 Dose: 125 mg - Exam General: Reports: Alert, Oriented Lungs: Reports: Clear to Auscultation, Normal Respiratory Effort Cardiovascular: Reports: Regular Rate, Regular Rhythm GI/Abdominal Exam: Normal Bowel Sounds, Soft, Non-Tender, No Abnormal Bruit Extremities: Normal Inspection Skin: Reports: Warm, Dry, Intact Neurological: Reports: No New Focal Deficit Psy/Mental Status: Reports: Alert, Normal Affect, Normal Mood
== END 2019-03-31 16:30 | disposition home or self-care (01) | DRG 373 ==
LOC: UNDOADMIN 13:01 → DL.MS 13:01
PROVIDERS: ADMIT Hospitalist; ATTEND Internal Medicine
DX: A04.72 Enterocolitis due to Clostridium difficile, not specified as recurrent (principal); I25.10 Atherosclerotic heart disease of native coronary artery without angina pectoris; I10 Essential (primary) hypertension; I48.91 Unspecified atrial fibrillation; H54.7 Unspecified visual loss; K21.9 Gastro-esophageal reflux disease without esophagitis; G89.29 Other chronic pain; M19.91 Primary osteoarthritis, unspecified site; M54.9 Dorsalgia, unspecified; E11.9 Type 2 diabetes mellitus without complications; E66.9 Obesity, unspecified; E53.8 Deficiency of other specified B group vitamins; Z95.1 Presence of aortocoronary bypass graft; Z79.82 Long term (current) use of aspirin; Z79.899 Other long term (current) drug therapy; Z90.89 Acquired absence of other organs; Z87.891 Personal history of nicotine dependence; Z68.32 Body mass index [BMI] 32.0-32.9, adult
CPT/HCPCS: 82962; 97110-GP; 97116-GP; 97165-GO; 97535-GO; A9270-GY

== ENCOUNTER 2019-09-29 15:52 | Emergency (ER) | payer MEDICARE, BC ==
[2019-09-29] MEDS ORDERED: Sodium Chloride 0.9% 10 ML Syringe FLUSH PRN (16:25)
[2019-09-29 17:12] LABS: ANION GAP 10.9; CHLORIDE,CL 109 mmol/L (101-111); SODIUM,NA 141 mmol/L (135-145)
--- NOTE | 2019-09-29 17:41 | EDM.PDOC ---
Scribed by Shanelle Carroll 09/29/19 9445 for Demarcus Carr MD <Demarcus Carr - Last Filed: 09/29/19 17:41> ED HPI GENERAL MEDICAL PROBLEM - General Chief Complaint: Neuro Symptoms/Deficits Stated Complaint: STROKE EVAL Time Seen by Provider: 09/29/19 16:10 Source of Information: Reports: Patient, RN, RN Notes Reviewed History Limitations: Reports: No Limitations - History of Present Illness INITIAL COMMENTS - FREE TEXT/NARRATIVE: Patient presents to ER stating that for the past 2 to 3 days he has had dizziness, feeling off balance and wanting to go to his right. States since his CABG in February he has noticed that his speech is hard to get out and doesn't feel it has worsened. No headache or any pain. States he has been combining for the past 2 to 3 days and could not combine today. Went into the clinic to make sure he hasn't mixed up his meds and they sent him here to be seen. Symptoms have not worsened in the past 2 to 3 days. He is to have cataract surgery coming up so has some trouble with some blurriness, unchanged since he started having issues with the cataracts. Onset: Gradual Duration: Constant Severity: Moderate Improves with: Reports: None Worsens with: Reports: None Associated Symptoms: Reports: No Other Symptoms - Related Data Allergies Allergy/AdvReac Type Severity Reaction Status Date / Time No Known Allergies Allergy Verified 09/29/19 16:10 Home Meds: Home Meds Tamsulosin HCl 0.4 mg PO BEDTIME 10/10/18 [History] Amiodarone [Cordarone] 200 mg PO DAILY 03/28/19 [History] traMADol [Ultram] 50 mg PO Q6H PRN 03/28/19 [History] Aspirin 325 mg PO DAILY #30 tablet 03/31/19 [Rx] Cyanocobalamin (Vitamin B-12) [B-12] 1,000 mcg PO DAILY #30 tab 03/31/19 [Rx] Lisinopril 10 mg PO DAILY #30 tab 03/31/19 [Rx] metFORMIN [Glucophage XR] 500 mg PO BEDTIME 04/18/19 [History] Metoprolol Tartrate [Lopressor] 12.5 mg PO BID 05/29/19 [History] Pravastatin Sodium [Pravastatin (Pravachol)] 40 mg PO BEDTIME 09/29/19 [History] Past Medical History HEENT History: Reports: Impaired Vision Other HEENT History: Wears glasses Cardiovascular History: Reports: Hypertension, Other (See Below) Other Cardiovascular History: CABG x2-2019 Respiratory History: Reports: Sleep Apnea Gastrointestinal History: Reports: Diverticulosis, GERD, Other (See Below) Other Gastrointestinal History: Hx of Inguinal and umbilical hernia Genitourinary History: Reports: None Musculoskeletal History: Reports: Arthritis, Back Pain, Chronic Neurological History: Reports: None Psychiatric History: Reports: None Endocrine/Metabolic History: Reports: Diabetes, Type II, Obesity/BMI 30+ Hematologic History: Reports: B12 Deficiency Immunologic History: Reports: None Oncologic (Cancer) History: Reports: None Dermatologic History: Reports: None - Infectious Disease History Infectious Disease History: Reports: C-Difficile, Chicken Pox - Past Surgical History Head Surgeries/Procedures: Reports: None HEENT Surgical History: Reports: Adenoidectomy, Oral Surgery, Tonsillectomy Cardiovascular Surgical History: Reports: Other (See Below) Other Cardiovascular Surgeries/Procedures: hx of angiogram 2002 GI Surgical History: Reports: Colonoscopy, Hernia, Inguinal, Hernia Repair/Other Male Surgical History: Reports: None Endocrine Surgical History: Reports: None Neurological Surgical History: Reports: None Musculoskeletal Surgical History: Reports: Shoulder Surgery, Other (See Below) Other Musculoskeletal Surgeries/Procedures:: THUMB SURGERY. Orthoscopic knee surgery of right knee. Back surgery Social & Family History - Family History Family Medical History: Noncontributory - Caffeine Use Caffeine Use: Reports: Coffee Caffeine Use Comment: 1 mug daily. 1 pop occassionally ED ROS GENERAL - Review of Systems Review Of Systems: ROS reveals no pertinent complaints other than HPI. ED EXAM, DIZZINESS - Physical Exam Exam: See Below Exam Limited By: No Limitations General Appearance: Alert, WD/WN, No Apparent Distress Eye Exam: Bilateral Eye: EOMI, Normal Inspection, PERRL Ears: Normal External Exam, Normal Canal, Hearing Grossly Normal, Normal TMs Nose: Normal Inspection, Normal Mucosa, No Blood Throat/Mouth: Normal Inspection, Normal Lips, Normal Teeth, Normal Gums, Normal Oropharynx, Normal Voice, No Airway Compromise Head Exam: Atraumatic, Normocephalic Neck: Normal Inspection, Supple, Non-Tender, Full Range of Motion Respiratory/Chest: No Respiratory Distress, Lungs Clear, Normal Breath Sounds, No Accessory Muscle Use, Chest Non-Tender Cardiovascular: Normal Peripheral Pulses, Regular Rate, Rhythm, No Edema, No Gallop, No JVD, No Murmur, No Rub GI/Abdominal: Normal Bowel Sounds, Soft, Non-Tender, No Organomegaly, No Distention, No Abnormal Bruit, No Mass (Male) Exam: Deferred Rectal (Males) Exam: Deferred Neurological: Alert, Normal Mood/Affect, Normal Dorsiflexion, CN II-XII Intact, Normal Plantar Flexion, Normal Gait, Normal Reflexes, No Motor/Sensory Deficits , Other (NIH scale for neuro is 0 per RN evaluation. ) Back Exam: Normal Inspection, Full Range of Motion, NT Extremities: Normal Inspection, Normal Range of Motion, Non-Tender, No Pedal Edema, Normal Capillary Refill Psychiatric: Normal Affect, Normal Mood Skin Exam: Warm, Dry, Intact, Normal Color, No Rash EKG INTERPRETATION EKG Date: 09/29/19 Time: 16:07 Rhythm: Other (sinus bradycardia) Rate (Beats/Min): 57 [place]: Normal P-Wave: Present QRS: Other (borderline and IVCD. Baseline wander in lead V2.) ST-T: Other (isolated inverted T wave lead III.) QT: Normal Course - Vital Signs Last Recorded V/S: Last Vital Signs Temp 98.3 F 09/29/19 15:54 Pulse 61 09/29/19 15:54 Resp 20 09/29/19 15:54 BP 171/92 H 09/29/19 15:54 Pulse Ox 94 L 09/29/19 15:54 - Orders/Labs/Meds Orders: Active Orders 24 hr Category Date Time Status EKG 12 Lead [EKG Documentation Completion] [RC] STAT Care 09/29/19 16:25 Active Peripheral IV Care [RC] . DIRECTED Care 09/29/19 16:25 Active Peripheral IV Insertion Adult [OM.PC] Stat Oth 09/29/19 16:25 Ordered Labs: Laboratory Tests 09/29/19 09/29/19 09/29/19 Range/Units 16:44 16:44 16:44 WBC 8.6 (5.0-10.0) 10^3/uL RBC 5.78 (4.6-6.2) 10^6/uL Hgb 15.5 (14.0-18.0) g/dL Hct 46.7 (40.0-54.0) % MCV 80.8 D (80-100) fL MCH 26.8 L (27.0-34.0) pg MCHC 33.2 (33.0-35.0) g/dL Plt Count 212 D (150-450) 10^3/uL Neut % (Auto) 57.0 (42.2-75.2) % Lymph % (Auto) 28.2 (20.5-50.1) % [place] % (Auto) 11.1 H (2-8) % Eos % (Auto) 2.3 (1.0-3.0) % Baso % (Auto) 1.4 H (0.0-1.0) % PT 9.0 (9.0-12.0) SEC INR 0.9 (0.9-1.2) APTT (22.0-34.0) SEC Sodium 141 (135-145) mmol/L Potassium 3.9 (3.6-5.0) mmol/L Chloride 109 (101-111) mmol/L Carbon Dioxide 25.0 (21.0-31.0) mmol/L Anion Gap 10.9 BUN 14 (7-18) mg/dL Creatinine 0.7 (0.6-1.3) mg/dL Est Cr Clr Drug Dosing 86.86 mL/min Estimated GFR (MDRD) > 60 BUN/Creatinine Ratio 20.00 Glucose 100 (74-105) mg/dL Calcium 8.7 (8.4-10.2) mg/dl Total Bilirubin 0.7 (0.2-1.0) mg/dL AST 13 (10-42) IU/L ALT 8 L (10-60) IU/L Alkaline Phosphatase 54 (42-121) IU/L Troponin I < 0.02 (0.00-0.02) ng/ml Total Protein 6.1 L (6.7-8.2) g/dl Albumin 3.6 (3.2-5.5) g/dl Globulin 2.5 Albumin/Globulin Ratio 1.44 Urine Color (YELLOW) Urine Appearance (CLEAR) Urine pH (5.0-9.0) Ur Specific [place] (1.005-1.030) Urine Protein (NEGATIVE) Urine Glucose (UA) (NEGATIVE) Urine Ketones (NEGATIVE) Urine Occult Blood (NEGATIVE) Urine Nitrite (NEGATIVE) Urine Bilirubin (NEGATIVE) Urine Urobilinogen (0.2-1.0) mg/dL Ur Leukocyte Esterase (NEGATIVE) 09/29/19 09/29/19 Range/Units 16:44 17:10 WBC (5.0-10.0) 10^3/uL RBC (4.6-6.2) 10^6/uL Hgb (14.0-18.0) g/dL Hct (40.0-54.0) % MCV (80-100) fL MCH (27.0-34.0) pg MCHC (33.0-35.0) g/dL Plt Count (150-450) 10^3/uL Neut % (Auto) (42.2-75.2) % Lymph % (Auto) (20.5-50.1) % [place] % (Auto) (2-8) % Eos % (Auto) (1.0-3.0) % Baso % (Auto) (0.0-1.0) % PT (9.0-12.0) SEC INR (0.9-1.2) APTT 24.1 (22.0-34.0) SEC Sodium (135-145) mmol/L Potassium (3.6-5.0) mmol/L Chloride (101-111) mmol/L Carbon Dioxide (21.0-31.0) mmol/L Anion Gap BUN (7-18) mg/dL Creatinine (0.6-1.3) mg/dL Est Cr Clr Drug Dosing mL/min Estimated GFR (MDRD) BUN/Creatinine Ratio Glucose (74-105) mg/dL Calcium (8.4-10.2) mg/dl Total Bilirubin (0.2-1.0) mg/dL AST (10-42) IU/L ALT (10-60) IU/L Alkaline Phosphatase (42-121) IU/L Troponin I (0.00-0.02) ng/ml Total Protein (6.7-8.2) g/dl Albumin (3.2-5.5) g/dl Globulin Albumin/Globulin Ratio Urine Color Yellow (YELLOW) Urine Appearance Clear (CLEAR) Urine pH 7.0 (5.0-9.0) Ur Specific [place] 1.015 (1.005-1.030) Urine Protein Negative (NEGATIVE) Urine Glucose (UA) Negative (NEGATIVE) Urine Ketones Negative (NEGATIVE) Urine Occult Blood Negative (NEGATIVE) Urine Nitrite Negative (NEGATIVE) Urine Bilirubin Negative (NEGATIVE) Urine Urobilinogen 1.0 (0.2-1.0) mg/dL Ur Leukocyte Esterase Negative (NEGATIVE) Meds: Medications Discontinued Medications Generic Name Dose Route Start Last Admin Trade Name Freq PRN Reason Stop Dose Admin Sodium Chloride 10 ml 09/29/19 16:25 09/29/19 16:49 Saline Flush FLUSH 10 ml ASDIRECTED PRN Administration Keep Vein Open Departure - Departure Disposition: DC/Tfer to [facility] 02 Clinical Impression: Stroke-like symptoms - Discharge Information Referrals: PCP,Unobtain [Primary Care Provider] - Forms: ED Department Discharge, Interfacility Transfer CHARLEEALA <Yadira Bello - Last Filed: 09/29/19 20:47> Course - Radiology Interpretation Free Text/Narrative:: head CT: 1. multiple areas of decreased attenuation scattered throughout the periventricular white matter characteristic of microvascular ischemic change and infarcts. 2. No supra tentorial or posterior fossa mass lesion. No hydrocephalus. 3. Uniformly thick bony calvarium. symmetric clear pneumatosis edition of the paranasal and mastoid sinuses. (See tiny retention cyst anterior wall right maxillary antrum). 4. Asymmetric ischemic change cerebellum, on the right. 5. No sign of acute intracerebral/intraventricular/subarachnoid bleed. 6. No abnormal extracerebral/intracranial epidural or subdural hematoma. Conclusion: Multi-infarct ischemic disease. No intracranial mass, hydrocephalus , or bleed. See radiologist's report - Re-Assessments/Exams Free Text/Narrative Re-Assessment/Exam: 09/29/19 20:45 patient case discussed with Dr. Parrish, stroke neurologist, at [facility]. She agrees patient needs further workup, and MRI. Dr. Hawthorne was accepting hospitalist at the facility. [facility] has dispatched they're fixed wing to come pick the patient up. Departure - Departure Time of Disposition: 19:30 Condition: Fair - Discharge Information *PRESCRIPTION DRUG MONITORING PROGRAM REVIEWED*: No *COPY OF PRESCRIPTION DRUG MONITORING REPORT IN PATIENT MICHELLE: No I have read and agree with the documentation that has been completed regarding this visit. By signing this record, I attest that the documentation was completed in my physical presence and is an accurate record of the encounter.
--- NOTE | 2019-09-29 18:48 | CT ---
EXAMINATION: TEMPORARY SEX: Unknown AGE: 78-year-old CLINICAL HISTORY: 78-year-old male with dizziness and speech difficulty. Scan technique: Volume acquisition of data emergency unenhanced CT scan of the head and brain obtained with patient lying supine on the Siemens multislice scanner [place], [place]. All data archived in the PACS system for storage, reformatting axial/sagittal/coronal planes and study (bone/brain windows). No comparison exams immediately available. INTERPRETATION: 1. Multiple areas of decreased attenuation scattered throughout the periventricular white matter characteristic of microvascular ischemic change and INFARCTS. 2. No supratentorial or posterior fossa mass lesion. No hydrocephalus. 3. Uniformly thick bony calvarium. Symmetric clear pneumatization of the paranasal and mastoid sinuses. (Tiny retention cyst anterior wall right maxillary antrum) 4. Asymmetric ischemic change cerebellum, on the right. 5. No sign of acute intracerebral/intraventricular/subarachnoid bleed. 6. No abnormal extracerebral/intracranial epidural or subdural hematoma. CONCLUSION: Multi-infarct ischemic disease. No intracranial mass, hydrocephalus or bleed.
== END 2019-09-29 19:30 ==
LOC: DL.ED 15:52
DX: R29.818 Other symptoms and signs involving the nervous system (principal); R42 Dizziness and giddiness; R26.89 Other abnormalities of gait and mobility; I10 Essential (primary) hypertension; E11.9 Type 2 diabetes mellitus without complications; E66.9 Obesity, unspecified; E53.8 Deficiency of other specified B group vitamins; Z79.82 Long term (current) use of aspirin; Z79.84 Long term (current) use of oral hypoglycemic drugs; Z79.899 Other long term (current) drug therapy; Z95.1 Presence of aortocoronary bypass graft; Z68.32 Body mass index [BMI] 32.0-32.9, adult
CPT/HCPCS: 36415; 70450; 80053; 81003; 82962; 84484; 85025; 85610; 85730; 93005; 99285-25

== ENCOUNTER 2021-07-04 18:16 | Emergency (ER) | payer MEDICARE, BC ==
[2021-07-04] MEDS ORDERED: Tetracaine HCl/PF 0.5% 4 ML Bottle EYEBOTH ONE (19:05)
[2021-07-04] MEDS ORDERED: Fluorescein 1 MG Ophth Strip EYELF ONE (19:07)
[2021-07-04] MEDS ORDERED: Fluorescein 1 MG Ophth Strip EYERT ONE (19:07)
--- NOTE | 2021-07-04 19:11 | EDM.PDOC ---
ED HPI GENERAL MEDICAL PROBLEM - General Chief Complaint: Eye Problems Stated Complaint: CHEMICAL IN BOTH EYES, LEFT MAIN HURTS Time Seen by Provider: 07/04/21 19:10 Source of Information: Reports: Patient, RN History Limitations: Reports: No Limitations - History of Present Illness INITIAL COMMENTS - FREE TEXT/NARRATIVE: ED with c/o burning to both eyes. Sppraying Tempo and think some on hand and rubbed eyes. Unsure if some from possible drift. No blurring of vision. Pain sslightly more on left than right. left eye Pain Score (Numeric/FACES): 7 right eye Pain Score (Numeric/FACES): 4 - Related Data Allergies Allergy/AdvReac Type Severity Reaction Status Date / Time No Known Allergies Allergy Verified 07/04/21 18:46 Home Meds: Home Meds Tamsulosin HCl 0.4 mg PO BEDTIME 10/10/18 [History] traMADol [Ultram] 50 mg PO Q6H PRN 03/28/19 [History] Aspirin 325 mg PO DAILY #30 tablet 03/31/19 [Rx] Cyanocobalamin (Vitamin B-12) [B-12] 1,000 mcg PO DAILY #30 tab 03/31/19 [Rx] Lisinopril 10 mg PO DAILY #30 tab 03/31/19 [Rx] metFORMIN [Glucophage XR] 500 mg PO BEDTIME 04/18/19 [History] Metoprolol Tartrate [Lopressor] 12.5 mg PO BID 05/29/19 [History] Pravastatin Sodium [Pravastatin (Pravachol)] 40 mg PO BEDTIME 09/29/19 [History] Past Medical History HEENT History: Reports: Impaired Vision Other HEENT History: Wears glasses Cardiovascular History: Reports: Hypertension, Other (See Below) Other Cardiovascular History: CABG x2-2019 Respiratory History: Reports: Sleep Apnea Gastrointestinal History: Reports: Diverticulosis, GERD, Other (See Below) Other Gastrointestinal History: Hx of Inguinal and umbilical hernia Genitourinary History: Reports: None Musculoskeletal History: Reports: Arthritis, Back Pain, Chronic Neurological History: Reports: None Psychiatric History: Reports: None Endocrine/Metabolic History: Reports: Diabetes, Type II, Obesity/BMI 30+ Hematologic History: Reports: B12 Deficiency Immunologic History: Reports: None Oncologic (Cancer) History: Reports: None Dermatologic History: Reports: None - Infectious Disease History Infectious Disease History: Reports: C-Difficile, Chicken Pox - Past Surgical History Head Surgeries/Procedures: Reports: None HEENT Surgical History: Reports: Adenoidectomy, Oral Surgery, Tonsillectomy Cardiovascular Surgical History: Reports: Other (See Below) Other Cardiovascular Surgeries/Procedures: hx of angiogram 2003 GI Surgical History: Reports: Colonoscopy, Hernia, Inguinal, Hernia Repair/Other Male Surgical History: Reports: None Endocrine Surgical History: Reports: None Neurological Surgical History: Reports: None Musculoskeletal Surgical History: Reports: Shoulder Surgery, Other (See Below) Other Musculoskeletal Surgeries/Procedures:: THUMB SURGERY. Orthoscopic knee surgery of right knee. Back surgery Social & Family History - Family History Family Medical History: No Pertinent Family History - Tobacco Use Tobacco Use Status *Q: Never Tobacco User Second Hand Smoke Exposure: No - Caffeine Use Caffeine Use: Reports: Coffee Caffeine Use Comment: 1 mug daily. 1 pop occassionally - Recreational Drug Use Recreational Drug Use: No ED ROS GENERAL - Review of Systems Review Of Systems: Comprehensive ROS is negative, except as noted in HPI. ED EXAM GENERAL W FULL EYE - Physical Exam Exam: See Below Exam Limited By: No Limitations General Appearance: Alert, Mild Distress Eye Exam: Bilateral Eye: EOMI, PERRL Eyelids: Bilateral: Normal Appearance, Lid Everted for Exam Conjunctiva & Sclera: Bilateral: Injected Cornea Exam: Bilateral: Normal Appearance, Examined with Flourescein Pupils: Normal Accommodation Pupillary Size: Bilateral: 4 mm Pupillary Reaction: Bilateral: Brisk Posterior Chamber: Bilateral: Normal Funduscopic Ears: Normal External Exam, Hearing Loss (mild) Throat/Mouth: Normal Inspection Head: Atraumatic, Normocephalic Neck: Normal Inspection Respiratory/Chest: No Respiratory Distress, Normal Breath Sounds Cardiovascular: Regular Rate, Rhythm Back Exam: Normal Inspection Extremities: Normal Inspection Psychiatric: Normal Affect, Normal Mood Skin Exam: Warm, Dry, Intact, Normal Color Course - Vital Signs Last Recorded V/S: Last Vital Signs Temp 96.2 F L 07/04/21 19:30 Pulse 68 07/04/21 20:03 Resp 16 07/04/21 19:46 BP 186/90 H 07/04/21 20:03 Pulse Ox 94 L 07/04/21 19:46 - Orders/Labs/Meds Meds: Medications Discontinued Medications Generic Name Dose Route Start Last Admin Trade Name Freq PRN Reason Stop Dose Admin Acetaminophen 650 mg 07/04/21 19:54 07/04/21 19:57 Acetaminophen 325 Mg Tab PO 07/04/21 19:55 650 mg NOW ONE Administration Fluorescein Sodium 1 mg 07/04/21 19:07 07/04/21 19:16 Fluorescein 1 Mg Ophth Strip EYELF 07/04/21 19:08 1 mg ONETIME ONE Administration Fluorescein Sodium 1 mg 07/04/21 19:07 07/04/21 19:17 Fluorescein 1 Mg Ophth Strip EYERT 07/04/21 19:08 1 mg ONETIME ONE Administration Sodium Chloride 1,000 mls @ 999 mls/hr 07/04/21 19:15 07/04/21 19:15 Normal Saline IRR 999 mls/hr ASDIRECTED GINA Administration Metoprolol Succinate 25 mg 07/04/21 19:54 07/04/21 20:03 Metoprolol Succinate 25 Mg Tab.Er PO 07/04/21 19:55 25 mg ONETIME ONE Administration Tetracaine HCl 1 ml 07/04/21 19:05 07/04/21 19:13 Tetracaine Hcl/Pf 0.5% 4 Ml Bottle EYEBOTH 07/04/21 19:06 2 drop ASDIRECTED ONE Administration Departure - Departure Time of Disposition: 19:29 Disposition: Home, Self-Care 01 Condition: Good Clinical Impression: Chemical conjunctivitis of both eyes - Discharge Information *PRESCRIPTION DRUG MONITORING PROGRAM REVIEWED*: No *COPY OF PRESCRIPTION DRUG MONITORING REPORT IN PATIENT MICHELLE: No Forms: ED Department Discharge Additional Instructions: eye clinic Wednesday recheck dark glasses avaaoid eye strain eye lubricant follow up if increased redness discharge tylenol 500mg every 4 hours as needed for discomfort cool compress as needed Sepsis Event Note (ED) - Evaluation Sepsis Screening Result: No Definite Risk
[2021-07-04] MEDS ORDERED: Sodium Chloride 0.9% 1,000 ML IRR SCH (19:15)
[2021-07-04] MEDS ORDERED: Metoprolol Succinate 25 MG Tab.ER PO ONE (19:54)
[2021-07-04] MEDS ORDERED: Acetaminophen 325 MG Tab PO ONE (19:54)
== END 2021-07-04 20:08 | disposition home or self-care (01) ==
LOC: DL.ED 18:16
DX: H10.213 Acute toxic conjunctivitis, bilateral (principal); T47.1X5A Adverse effect of other antacids and anti-gastric-secretion drugs, initial encounter; I10 Essential (primary) hypertension; E11.9 Type 2 diabetes mellitus without complications; E66.9 Obesity, unspecified; Z95.1 Presence of aortocoronary bypass graft; Z79.82 Long term (current) use of aspirin; Z79.899 Other long term (current) drug therapy; Z79.84 Long term (current) use of oral hypoglycemic drugs; Z68.32 Body mass index [BMI] 32.0-32.9, adult
CPT/HCPCS: 99283; A9270; J7030

== ENCOUNTER 2024-08-29 08:15 | Observation (INO) | payer MEDICARE, BC ==
[2024-08-29 08:59] LABS: HEMATOCRIT 46.6 % (40.0-54.0); HEMOGLOBIN 15.3 g/dL (14.0-18.0); MEAN CORPUSCULAR HEMOGLOBIN 28.3 pg (27.0-34.0); MEAN CORPUSCULAR HGB CONC 32.8 g/dL (33.0-35.0); MEAN CORPUSCULAR VOLUME 86.3 fL (80-100); PLATELET COUNT,PLT 167 10^3/uL (150-450); WHITE BLOOD CELL COUNT,WBC 12.5 10^3/uL (5.0-10.0)
[2024-08-29] MEDS: Albuterol/Ipratropium 3.0-0.5 MG/3 ML Neb Soln NEB ONE ×2 (09:13→12:18)
[2024-08-29 09:20] LABS: ANION GAP 16.5 mEq/L (7-13); BILIRUBIN TOTAL 0.9 mg/dL (0.2-1.0); BUN/CREATININE RATIO 14.3 (No establ ref range); CALCIUM 9.1 mg/dL (8.5-10.1); CREATININE 1.26 mg/dL (0.70-1.30); EST CRCL DRUG DOSING (CG) 42.99 mL/min; POTASSIUM,K 4.5 mmol/L (3.5-5.1); PROTEIN TOTAL,TP 6.4 g/dL (6.4-8.2)
[2024-08-29 09:22] LABS: BASOPHILS PERCENT AUTO 0.8 % (0.0-1.0); EOSINOPHILS PERCENT AUTO 1.6 % (1.0-3.0); LYMPHOCYTES PERCENT AUTO 12.9 % (20.5-50.1); MONOCYTES PERCENT AUTO 9.7 % (2-8)
[2024-08-29 09:26] LABS: A/G RATIO 0.88
[2024-08-29] MEDS: Furosemide 40 MG/4 ML VIAL IVPUSH ONE (10:19)
[2024-08-29 10:31] LABS: BAND PERCENT MAN 3 %; LYMPHOCYTES PERCENT MAN 15 % (20-50); MONOCYTES PERCENT MAN 6 % (2-8); SEG NEUTROPHILS PERCENT MAN 76 % (42-75)
[2024-08-29] MEDS: Iopamidol 755 Mg/ML 100 ML Bottle IVPUSH ONE (11:10)
[2024-08-29] MEDS: Dexamethasone 4 MG/ML SDV IVPUSH ONE (12:18)
[2024-08-29 12:28] LABS: APPEARANCE,URINE CLEAR (CLEAR); BILIRUBIN,URINE NEGATIVE (NEGATIVE); COLOR,URINE YELLOW (YELLOW); GLUCOSE,URINE 500 (NEGATIVE); KETONES,URINE 15 (NEGATIVE); LEUKOCYTE ESTERASE,URINE NEGATIVE (NEGATIVE); NITRITE,URINE NEGATIVE (NEGATIVE); OCCULT BLOOD,URINE SMALL (NEGATIVE); PH,URINE 5.5 (5.0-9.0); PROTEIN,URINE NEGATIVE (NEGATIVE); UROBILINOGEN,URINE 0.2 mg/dL (0.2-1.0)
[2024-08-29 12:43] LABS: AMORPHOUS SEDIMENT,URINE RARE /HPF (NOT SEEN); BACTERIA,URINE FEW /HPF (0-FEW/HPF); EPITHELIAL CELLS,URINE RARE /HPF (NOT SEEN); MUCUS,URINE MODERATE /LPF (NOT SEEN); RBC,URINE 0-5 /HPF (0-5); WBC,URINE 0-5 /HPF (0-5/HPF)
[2024-08-29] MEDS ORDERED: Acetaminophen 500 MG Tab PO PRN (15:11)
[2024-08-29] MEDS ORDERED: Albuterol/Ipratropium 3.0-0.5 MG/3 ML Neb Soln NEB PRN (15:38)
[2024-08-29] MEDS ORDERED: Acetaminophen/HYDROcodone 325-5 MG Tab PO PRN (15:38)
[2024-08-29] MEDS ORDERED: Docusate Sodium 100 MG Cap PO PRN (15:38)
[2024-08-29] MEDS ORDERED: Bisacodyl 5 MG Tab PO PRN (15:38)
[2024-08-29] MEDS ORDERED: Glucagon,Human Recombinant 1 MG Vial IM PRN (16:58)
[2024-08-29] MEDS ORDERED: 50% Dextrose in Water 50 ML Syringe IVPUSH PRN (16:58)
[2024-08-29] MEDS: Insulin Lispro 100 Units/ML 3 ML Vial SUBCUT SCH (17:40)
[2024-08-29] MEDS: Azithromycin 500 MG in Sodium Chloride 0.9% 250 ML IV ONE (17:45)
[2024-08-29] MEDS: Simvastatin 10 MG Tab PO SCH (20:57)
[2024-08-29] MEDS: Melatonin 3 MG Tab PO PRN (20:57)
[2024-08-29] MEDS: metFORMIN 500 MG Tab PO SCH (20:57)
[2024-08-29] MEDS: Metoprolol Tartrate 25 MG Tab PO SCH (20:58)
[2024-08-30 07:04] LABS: O2 DELIVERY DEVICE CPAP
[2024-08-30 07:06] LABS: BASE EXCESS VENOUS -1.7 mmol/l ((-2)-(+3)); BICARBONATE,VENOUS 22 mmol/l (19-25); O2 SATURATION VENOUS 84.9 % (60-80); PCO2 VENOUS 36 mmHg (41-51); PO2 VENOUS 51 mmHg (35-42)
[2024-08-30 08:54] LABS: INFLUENZA A NAA NEGATIVE (NEGATIVE); INFLUENZA B NAA NEGATIVE (NEGATIVE); RESPIRATORY SYNCYTIAL VIR NAA NEGATIVE (NEGATIVE)
[2024-08-30 08:58] LABS: CORONAVIRUS COVID-19 NAA POSITIVE (NEGATIVE)
[2024-08-30] MEDS: Insulin Lispro 100 Units/ML 3 ML Vial SUBCUT SCH (10:13)
[2024-08-30] MEDS: predniSONE 20 MG Tab PO SCH (10:14)
[2024-08-30] MEDS: Aspirin 81 MG Tab.EC PO SCH (10:14)
[2024-08-30] MEDS: Cyanocobalamin (Vitamin B12) 1,000 MCG Tab PO SCH (10:14)
[2024-08-30] MEDS: Lisinopril 10 MG Tab PO SCH (10:15)
[2024-08-30] MEDS: Azithromycin 250 MG Tab PO SCH (10:15)
[2024-08-30 11:46] LABS: O2 DELIVERY DEVICE ROOM AIR
[2024-08-30 11:48] LABS: BASE EXCESS VENOUS -1.8 mmol/l ((-2)-(+3)); BICARBONATE,VENOUS 21 mmol/l (19-25); O2 SATURATION VENOUS 95.1 % (60-80); PCO2 VENOUS 34 mmHg (41-51); PH,VENOUS 7.42 (7.31-7.41); PO2 VENOUS 71 mmHg (35-42)
[2024-08-30 17:14] LABS: O2 DELIVERY DEVICE NASAL CANNULA
[2024-08-30 17:16] LABS: BASE EXCESS VENOUS -1.4 mmol/l ((-2)-(+3)); BICARBONATE,VENOUS 23 mmol/l (19-25); O2 SATURATION VENOUS 69.5 % (60-80); PCO2 VENOUS 40 mmHg (41-51); PH,VENOUS 7.38 (7.31-7.41); PO2 VENOUS 41 mmHg (35-42)
[2024-08-31] MEDS: Spironolactone 25 MG Tab PO SCH (08:32)
== END 2024-08-31 16:22 | disposition home or self-care (01) ==
LOC: DL.ED 08:15 → DL.MS 13:12 → DL.ED 13:27
PROVIDERS: ADMIT Internal Medicine; ATTEND Internal Medicine
DX: S20.219A Contusion of unspecified front wall of thorax, initial encounter (principal); U07.1 COVID-19; I11.0 Hypertensive heart disease with heart failure; I50.9 Heart failure, unspecified; J44.9 Chronic obstructive pulmonary disease, unspecified; R09.02 Hypoxemia; I25.10 Atherosclerotic heart disease of native coronary artery without angina pectoris; E11.9 Type 2 diabetes mellitus without complications; E66.9 Obesity, unspecified; G47.33 Obstructive sleep apnea (adult) (pediatric); Z68.30 Body mass index [BMI] 30.0-30.9, adult; Z79.84 Long term (current) use of oral hypoglycemic drugs; Z79.899 Other long term (current) drug therapy; Z79.82 Long term (current) use of aspirin; Z79.2 Long term (current) use of antibiotics; W01.0XXA Fall on same level from slipping, tripping and stumbling without subsequent striking against object, initial encounter
CPT/HCPCS: 0241U; 36415; 71046; 71275; 73562; 80053; 81001; 82803; 82947; 83880; 84484; 85025; 93005; 93010; 96374; 96375; 99223; 99232; 99285; A9270; J0456; J1100; J1815; J1940; J7050; J7512; Q9967; J7620-GY